=== PATIENT | female | born 1990 | race African-American/Black ===

== ENCOUNTER 2018-02-20 11:02 | Inpatient (IN) | payer OTHER ==
--- NOTE | 2018-02-20 12:14 | ED ---
Psych HPI - General Chief Complaint: Psychiatric Symptoms Stated Complaint: SUICIDAL Time Seen by Provider: 02/20/18 11:37 Source: patient, RN notes reviewed Mode of arrival: wheelchair - History of Present Illness Initial Comments: This is a 27-year-old female with a history depression past also history of drug abuse who states she has not been using drugs for well over 6 months he just got out of [facility] after 6 months on the fifth of this month who presents today because of feeling depressed and suicidal she has no particular plan she is very tearful during her interview however. She cannot relate any specific incident is triggering this today. She states she believes is just generally her life in general. She denies any headache dizziness blurry vision nausea vomiting or other symptoms at this time MD Complaint: suicidal ideation, feels depressed - Related Data Home Medications Medication Instructions Recorded Confirmed No Known Home Medications [No 02/20/18 02/20/18 Known Home Medications] Allergies Allergy/AdvReac Type Severity Reaction Status Date / Time Sulfa (Sulfonamide AdvReac Rash/Hives Verified 02/20/18 11:21 Antibiotics) Review of Systems ROS Statement: Those systems with pertinent positive or pertinent negative responses have been documented in the HPI. ROS Other: All systems not noted in ROS Statement are negative. Past Medical History Past Medical History: No Reported History History of Any Multi-Drug Resistant Organisms: None Reported, MRSA Date of last positivie culture/infection: 2010 MDRO Source:: axilla Past Surgical History: No Surgical Hx Reported Past Psychological History: No Psychological Hx Reported, Depression Smoking Status: Current every day smoker Past Alcohol Use History: Rare Past Drug Use History: Heroin General Exam - General Exam Comments Initial Comments: This is a well-developed well-nourished awake alert oriented 3 female she is tearful Limitations: no limitations General appearance: alert, in no apparent distress Head exam: Present: atraumatic, normocephalic, normal inspection Eye exam: Present: normal appearance, PERRL, EOMI. Absent: scleral icterus, conjunctival injection, periorbital swelling ENT exam: Present: normal exam, mucous membranes moist Neck exam: Present: normal inspection. Absent: tenderness, meningismus, lymphadenopathy Respiratory exam: Present: normal lung sounds bilaterally. Absent: respiratory distress, wheezes, rales, rhonchi, stridor Cardiovascular Exam: Present: regular rate, normal rhythm, normal heart sounds. Absent: systolic murmur, diastolic murmur, rubs, gallop, clicks GI/Abdominal exam: Present: soft, normal bowel sounds. Absent: distended, tenderness, guarding, rebound, rigid Extremities exam: Present: normal inspection, full ROM, normal capillary refill. Absent: tenderness, pedal edema, joint swelling, calf tenderness Back exam: Present: normal inspection Neurological exam: Present: alert, oriented X3, CN II-XII intact Psychiatric exam: Present: depressed, suicidal ideation Skin exam: Present: warm, dry, intact, normal color. Absent: rash Course Vital Signs 02/20/18 11:05 Temperature 97.9 F Pulse Rate 99 Respiratory 18 Rate Blood Pressure 131/78 O2 Sat by Pulse 100 Oximetry Medical Decision Making - Medical Decision Making The patient was evaluated by psychiatric service and will be admitted for inpatient treatment. - Lab Data Lab Results 02/20/18 02/20/18 Range/Units 13:20 13:20 Urine HCG, Qual Not Detected (Not Detectd) Urine Opiates Screen Detected H (NotDetected) Ur Oxycodone Screen Not Detected (NotDetected) Urine Methadone Screen Not Detected (NotDetected) Ur Propoxyphene Screen Not Detected (NotDetected) Ur Barbiturates Screen Not Detected (NotDetected) U Tricyclic Antidepress Not Detected (NotDetected) Ur Phencyclidine Scrn Not Detected (NotDetected) Ur Amphetamines Screen Detected H (NotDetected) U Methamphetamines Scrn Detected H (NotDetected) U Benzodiazepines Scrn Not Detected (NotDetected) Urine Cocaine Screen Not Detected (NotDetected) U Marijuana (THC) Screen Detected H (NotDetected) Disposition Clinical Impression: Depression, Suicidal ideation Disposition: TRANSFER TO PSYCH HOSP/UNIT Condition: Stable Referrals: None,Stated [Primary Care Provider] - 1-2 days
[2018-02-20 13:41] LABS: Amphetamine Screen,Urine Detected (NotDetected); Barbiturate Screen,Urine Not Detected (NotDetected); Benzodiazepines Screen,Urine Not Detected (NotDetected); Cocaine Screen,Urine Not Detected (NotDetected); Methadone Screen, Urine Not Detected (NotDetected); Opiate Screen,Urine Detected (NotDetected); Oxycodone Screen, Urine Not Detected (NotDetected); Phencyclidine Screen,Urine Not Detected (NotDetected); Tricyclic Antidepressant,Urine Not Detected (NotDetected); Urn Cannabinoid Scrn Detected (NotDetected)
[2018-02-20] MEDS ORDERED: ACETAMINOPHEN TAB 325 MG TAB PO PRN (16:25)
[2018-02-20] MEDS ORDERED: MAGNESIUM HYDROXIDE 2,400 MG/10 ML CUP PO PRN (16:25)
[2018-02-20] MEDS ORDERED: MAG HYDROX/AL HYDROX/SIMETH 30 ML CUP PO PRN (16:25)
[2018-02-20] MEDS ORDERED: LORazepam 1 MG TAB PO PRN (16:25)
[2018-02-20] MEDS: NICOTINE 14MG/24HR PATCH TRANSDERM SCH (16:42)
[2018-02-20 17:29] VITALS: BMI 20.7
--- NOTE | 2018-02-20 18:50 | P.HPIM ---
History of Present Illness H&P Date: 02/20/18 Chief Complaint: Depression 27-year-old female with a history depression and anxiety as well as past history of drug use, has been sober for 2 years with recent relapse presented to the emergency department because of worsening depression and anxiety. Patient was sober for 2 years but last 2 weeks she has been using heroin and other street drugs. She stated that she has been hearing voices and seeing any real things and people. The voices ask her if she has done certain things throughout the day. In addition she has been having intermittent right-sided chest pain that lasts for seconds, happens 1-2 times during the day. She stated that she always had shortness of breath. She denies any headache, palpitation, dizziness, blurry vision, nausea, vomiting or other symptoms at this time Review of Systems 12 point review of system was performed, negative except for HPI Past Medical History Past Medical History: No Reported History History of Any Multi-Drug Resistant Organisms: None Reported, MRSA Date of last positivie culture/infection: 2010 MDRO Source:: axilla Past Surgical History: No Surgical Hx Reported Past Psychological History: No Psychological Hx Reported, Depression Smoking Status: Current every day smoker Past Alcohol Use History: Rare Past Drug Use History: Heroin, Marijuana, Methamphetamine - Past Family History Mother Family Medical History: Cancer (stomach) Medications and Allergies Home Medications Medication Instructions Recorded Confirmed Type No Known Home Medications [No 02/20/18 02/20/18 History Known Home Medications] Allergies Allergy/AdvReac Type Severity Reaction Status Date / Time Sulfa (Sulfonamide AdvReac Rash/Hives Verified 02/20/18 18:21 Antibiotics) Physical Exam Vitals: Vital Signs Temp Pulse Pulse Resp BP BP Pulse Ox 02/20/18 15:35 98.1 F 72 16 97/58 02/20/18 15:26 98.5 F 90 18 108/63 100 02/20/18 11:05 97.9 F 99 18 131/78 100 Intake and Output 02/20/18 02/20/18 02/20/18 06:59 14:59 22:59 Other: Weight 58.967 kg 58.117 kg Constitutional: No acute distress, conversant, pleasant Eyes:Anicteric sclerae, moist conjunctiva, no lid-lag, PERRLA, ENMT: Oropharynx clear, no erythema, exudates Neck: Supple, FROM, no masses, or JVD, No carotid bruits, No thyromegaly Lungs: Positive tenderness on the right chest wall to deep palpation, Clear to auscultation, Clear to percussion, Normal respiratory effort, no accessory muscle use Cardiovascular: Heart regular in rate and rhythm, No murmurs, gallops, or rubs, No peripheral edema Abdominal: Soft, Nontender, no guarding, rebound or rigidity, Normoactive bowel sounds, No hepatomegaly, No splenomegaly, No palpable mass Skin: Normal temperature, tone, texture, turgor, no induration, No subcutaneous nodules, No rash, lesions, No ulcers Extremities: No digital cyanosis, No clubbing, Pedal pulses intact and symmetrical, Radial pulses intact and symmetrical, No calf tenderness Psychiatric: Alert and oriented to person, place and time, appropriate affect, intact judgement Neuro: Muscles Strength 5/5 in all 4 extremities, Sensation to light touch grossly present throughout, Cranial nerves II-XII grossly intact, no focal sensory deficits Results Labs: Abnormal Lab Results - Last 24 Hours (Table) 02/20/18 Range/Units 13:20 Urine Opiates Screen Detected H (NotDetected) Ur Amphetamines Screen Detected H (NotDetected) U Methamphetamines Scrn Detected H (NotDetected) U Marijuana (THC) Screen Detected H (NotDetected) Thrombosis Risk Factor Assmnt - Choose All That Apply Any of the Below Risk Factors Present?: No Other Risk Factors: No Other congenital or acquired thrombophilia - If yes, enter type in comment: No Thrombosis Risk Factor Assessment Level: Very Low Risk Assessment and Plan Plan: #1 Suicidal ideation/depression: Management per psychiatry Check CBC, CMP, mag and phos, TSH #2 Smoking: Nicotine patch Counseled to quit #3 Chest pain: Atypical, likely musculoskeletal in origin as it is induced by palpation EKG done and reviewed #4 Substance abuse: Counseled to quit
[2018-02-21 08:12] LABS: Basophils % (A) 1 %; Eosinophils # (A) 0.2 k/uL (0-0.7); Eosinophils % (A) 7 %; HCT 38.1 % (34.0-46.0); Lymphocytes # (A) 1.5 k/uL (1.0-4.8); Lymphocytes % (A) 50 %; MCH 30.6 pg (25.0-35.0); MCHC 34.2 g/dL (31.0-37.0); MCV 89.6 fL (80.0-100.0); Mean Platelet Volume 8.6; Monocytes # (A) 0.2 k/uL (0-1.0); Monocytes % (A) 7 %; Neutrophils # (A) 0.9 k/uL (1.3-7.7); Neutrophils % (A) 31 %; Platelet Count 208 k/uL (150-450); RBC 4.25 m/uL (3.80-5.40); RDW 12.1 % (11.5-15.5); WBC 2.9 k/uL (3.8-10.6)
[2018-02-21 08:28] LABS: ALT 45 U/L (9-52); AST 26 U/L (14-36); Albumin 3.5 g/dL (3.5-5.0); Alkaline Phosphatase 41 U/L (38-126); Anion Gap 8 mmol/L; Blood Urea Nitrogen 12 mg/dL (7-17); Calcium 8.6 mg/dL (8.4-10.2); Carbon Dioxide 27 mmol/L (22-30); Chloride 109 mmol/L (98-107); Glucose 88 mg/dL (74-99); Sodium 144 mmol/L (137-145); Total Bilirubin 0.2 mg/dL (0.2-1.3)
[2018-02-21] MEDS: NICOTINE 14MG/24HR PATCH TRANSDERM SCH (09:05)
[2018-02-21] MEDS: QUEtiapine 50 MG TAB PO PRN ×2 (09:05→21:20)
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
[2018-02-22] MEDS: NICOTINE 14MG/24HR PATCH TRANSDERM SCH (09:42)
--- NOTE | 2018-02-22 12:31 | P.PN ---
Progress Note - Text Progress Note Date: 02/22/18 Patient was seen for a routine follow-up examination. She said she is upset because her cousin is trying to get the full custody of her son. Apparently her son was taken care of by patient's mother and her cousin has been looking after her son for about 1 week and now she wants the custody. She is not clear how her cousin got the custody of first son when he was being taken care of by patient's mother. She said she does not see things or hear voices anymore. She also denies suicidal and homicidal thoughts. She said she is attending her groups. This is a black ambulatory female with good hygiene. She is polite and cooperative. She does not show any psychomotor agitation or retardation. Her speech is spontaneous relevant and goal-directed. Her mood is mildly anxious and affect is appropriate to the thought content. She denies current suicidal and homicidal ideas. She also denies hallucinations and delusional thinking. She is well oriented with adequate memory concentration general knowledge etc. Her insight is still rather poor and judgment is impaired as evidenced by not wanting to go through rehab and wanting to have custody of her son when she does not have a place to live and does not have any means to support herself let alone her son. Plan: Continue current medications and groups.
[2018-02-22] MEDS: QUEtiapine 50 MG TAB PO PRN ×2 (13:42→20:04)
[2018-02-22] MEDS ORDERED: ZIPRASIDONE 20 MG VIAL IM PRN (13:45)
[2018-02-22] MEDS ORDERED: ZIPRASIDONE 20 MG VIAL IM ONE (13:51)
[2018-02-23] MEDS: NICOTINE 14MG/24HR PATCH TRANSDERM SCH (09:03)
[2018-02-23] MEDS: QUEtiapine 50 MG TAB PO PRN ×2 (09:04→16:54)
--- NOTE | 2018-02-23 15:12 | P.PN ---
Progress Note - Text Progress Note Date: 02/23/18 Patient was seen for routine follow-up examination. Today she is lot calmer and more cooperative. Yesterday she got irate, wrote an AMA, threatening others , trying to leave the unit etc. She got a when necessary Geodon shot, slept a few hours in the afternoon and today she feels lot better and relaxed. She says she needs to get some help and to better before she goes home. This is a black ambulatory female with adequate hygiene. She is relaxed and more cooperative. She does not show any psychomotor agitation or retardation. Her speech is spontaneous relevant and goal-directed. Her mood is cheerful and affect is appropriate. She denies hallucinations delusional thinking suicidal and homicidal ideas. She is well oriented with adequate memory concentration etc. Plan: Continue when necessary Seroquel, groups and other activities.
[2018-02-23] MEDS ORDERED: IBUPROFEN 600 MG TAB PO PRN (16:40)
--- NOTE | 2018-02-23 20:54 | XR ---
PROCEDURE: XR shoulder complete RT, 3 views DATE AND TIME: 02/23/2018 5:54 PM REFERRING PHYSICIAN: Apryl Garcia CLINICAL INDICATION: PHH, New onset pain TECHNIQUE: Department protocol. COMPARISON: None FINDINGS: There is no fracture or malalignment. The soft tissues are unremarkable. IMPRESSION: NO ACUTE PROCESS.
[2018-02-24] MEDS: NICOTINE 14MG/24HR PATCH TRANSDERM SCH (08:51)
[2018-02-24] MEDS: QUEtiapine 50 MG TAB PO PRN ×2 (08:52→21:03)
--- NOTE | 2018-02-24 10:15 | P.PN ---
Progress Note - Text Progress Note Date: 02/24/18 Patient was seen for a follow-up examination. She said she just finished her telephone interview for rehab program. Apparently she was told that the earliest she can go there is on March 07. But she will talk to her adoption social worker who may be able to help her to get in there earlier. She is also going to talk to her mother about all these things. She does not have any other complaints or concerns. She has been going to her groups, socializes with peers and interacts with staff members. This is a black ambulatory female with good hygiene. She is polite friendly and cooperative. She does not show any psychomotor agitation or retardation. Her speech is spontaneous relevant and goal-directed. Her mood is cheerful and affect is appropriate. She denies hallucinations and delusional thinking. She also denies suicidal and homicidal thoughts. She has been saying that she is interested in going through rehab. She is well oriented with good memory concentration general fund of knowledge etc. Plan: Continue when necessary medications, groups and possibly send her to a rehab.
[2018-02-24 13:25] LABS: Appearance,Urine Cloudy (Clear); Bilirubin,Urine Negative (Negative); Blood,Urine Negative (Negative); Color,Urine Light Yellow; Glucose,Urine (UA) Negative (Negative); Ketones,Urine Negative (Negative); Leukocyte Esterase,Urine Large (Negative); Mucus,Urine Rare /hpf; Nitrite,Urine Negative (Negative); PH, Urine 6.5 (5.0-8.0); Protein,Urine Negative (Negative); Specific Gravity,Urine 1.011 (1.001-1.035); Squamous Epithelial Cell,Urine 5 /hpf (0-4); Urobilinogen,Urine <2.0 mg/dL (<2.0); WBC,Urine 50 /hpf (0-5)
[2018-02-25] MEDS: NICOTINE 14MG/24HR PATCH TRANSDERM SCH (08:17)
[2018-02-25] MEDS: QUEtiapine 50 MG TAB PO PRN ×2 (08:17→20:49)
--- NOTE | 2018-02-25 09:00 | P.PN ---
Progress Note - Text Progress Note Date: 02/25/18 Patient was seen for routine follow-up examination. She had discussed with her mother and mother's boyfriend about staying with them until she can go to the rehab probably on march. Apparently her mother and her boyfriend do not abuse drugs or alcohol and she can be safe there. Otherwise she does not have any complaint or concerns. She attends her groups, socializes with peers, interacts with staff etc. Somebody had ordered urinalysis for suspected UTI and the findings are suggestive of UTI. This is a black ambulatory female with good hygiene. She is polite friendly and cooperative. She does not show any psychomotor agitation or retardation. Her speech is spontaneous relevant and goal-directed. Her mood is euthymic to cheerful and affect is appropriate. She denies hallucinations delusional thinking suicidal and homicidal ideas. She is well oriented with good memory concentration etc. Plan: Decide about her discharge plans after the treatment team meeting. I will order antibiotics for UTI if this is not handled by the physician who had ordered UTI.
[2018-02-26 07:13] VITALS: RESP 16; TEMP 97.5
[2018-02-26] MEDS: NICOTINE 14MG/24HR PATCH TRANSDERM SCH (08:29)
[2018-02-26] MEDS: QUEtiapine 50 MG TAB PO PRN (08:31)
[2018-02-26] MEDS ORDERED: NITROFURANTOIN MONOHYD/M-CRYST 100 MG CAP PO SCH (09:00)
--- NOTE | 2018-02-26 11:02 | P.DS ---
Providers Date of admission: 02/20/18 15:08 Expected date of discharge: 02/26/18 Attending physician: Janes Sagastume Consults: 02/20/18 16:25 Consult Physician Routine Consulting Provider: Mariah Mcbride Consult Reason/Comments: H & P and medical care Do you want consulting provider notified?: Yes Primary care physician: Stated None Hospital Course: Patient had her psychiatric evaluation, physical examination and psychosocial evaluation. After the psychiatric examination she was started on Seroquel 50 mg 3 times a day on a when necessary basis for "psychosis". She received milieu therapy group therapy individual therapy occupational therapy recreational therapy and medication education. She started to improve, socialized with peers and attended groups and got along fairly well. On 22 of February she became irate wanted to leave the hospital and wrote an AMA request. Because of her agitation and anger issues she was not discharged right away and she was given a when necessary Geodon injection. Following the injection she is slept for a while and when she woke up she became more relaxed and cooperative. She did not insist on leaving the hospital AMA. Then she got interested in getting a rehab for her drug issues. She contacted the rehabilitation services and apparently was accepted to go there on march. Since it is a long way from now she decided to go and stay with her mother and mother's boyfriend who do not abuse drugs or alcohol. In view of this it was agreed to discharge her. Meanwhile she developed some burning of urination and the urinalysis showed evidence of UTI. She was started on nitrofurantoin since she is ALLERGIC to sulfa. Condition on discharge: This is a black ambulatory female with good hygiene. She is polite friendly and cooperative. She does not show any psychomotor agitation or retardation. Her speech is spontaneous relevant and goal- directed. Her mood is cheerful and affect is appropriate. She denies hallucinations delusional thinking suicidal and homicidal ideas. She is well oriented with good memory concentration etc. Her insight and judgment have improved. 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 ALLERGY to sulfa. UTI. Patient was advised and agreed to take her medications as prescribed, seek drug rehabilitation, not to abuse drugs or alcohol, learn better coping skills, inform her doctor if she gets , discuss with her psychiatrist/therapist if she gets any suicide thoughts and if she cannot get hold of them to go to nearest ER. Plan - Discharge Summary Discharge Rx Participant: Yes New Discharge Prescriptions: New Nitrofurantoin Monohyd/M-Cryst [Macrobid] 100 mg PO BID 10 Days #19 cap Discharge Medication List Nitrofurantoin Monohyd/M-Cryst [Macrobid] 100 mg PO BID 10 Days #19 cap [Rx] Follow up Appointment(s)/Referral(s): intake,intake [Other] - As Needed [facility] [Outside] - 03/01/18 11:30 am Activity/Diet/Wound Care/Special Instructions: Activity and diet as tolerated. Avoid the use of street drugs and alcohol. Take medications as prescribed. When you are in need of refills on your medications please contact your medical provider and/or outpatient psychiatrist to have this done. Please go to scheduled outpatient appointment for aftercare treatment. If symptoms return or become worse call the crisis line at [phone] and/or go to the nearest emergency room for an evaluation.
== END 2018-02-26 13:34 | disposition home or self-care (01) | DRG 885 ==
LOC: EC 11:02 → 3MHU 15:08
PROVIDERS: ADMIT Psychiatry & Neurology Psychiatry; ATTEND Psychiatry & Neurology Psychiatry
DX: F23 Brief psychotic disorder (principal); F11.20 Opioid dependence, uncomplicated; R45.851 Suicidal ideations; F15.20 Other stimulant dependence, uncomplicated; N39.0 Urinary tract infection, site not specified; F12.20 Cannabis dependence, uncomplicated; F60.2 Antisocial personality disorder; Z88.2 Allergy status to sulfonamides; F17.200 Nicotine dependence, unspecified, uncomplicated; F32.9 Major depressive disorder, single episode, unspecified; F41.9 Anxiety disorder, unspecified; Z59.0 Homelessness
CPT/HCPCS: 80053; 80306; 81001; 81025; 82075; 84443; 85025; 99285

== ENCOUNTER 2018-03-19 00:56 | Emergency (ER) | payer OTHER | END 2018-03-19 01:30 | disposition left against medical advice (07) | LOC: EC 00:56 | DX: T40.1X1A Poisoning by heroin, accidental (unintentional), initial encounter (principal); Z87.891 Personal history of nicotine dependence; Z88.2 Allergy status to sulfonamides | CPT/HCPCS: 99284 ==

== ENCOUNTER 2018-03-19 03:38 | Emergency (ER) | payer OTHER | END 2018-03-19 04:12 | disposition left against medical advice (07) | LOC: EC 03:38 | DX: Z53.21 Procedure and treatment not carried out due to patient leaving prior to being seen by health care provider (principal) | CPT/HCPCS: 99499 ==

== ENCOUNTER 2018-03-25 20:25 | Inpatient (IN) | payer MEDICAID, OTHER ==
--- NOTE | 2018-03-25 21:11 | ED ---
General Adult HPI - General Chief complaint: Psychiatric Symptoms Stated complaint: suicidal Time Seen by Provider: 03/25/18 21:00 Source: patient, RN notes reviewed, old records reviewed Mode of arrival: ambulatory Limitations: no limitations - History of Present Illness Initial comments: 28-year-old female presenting with suicidal ideation. Patient states she was recently admitted to this hospital for psychiatric evaluation and treatment. Since discharge she has been having daily thoughts of suicide. She states several days ago she did attempt suicide by ingestion large quantity of fentanyl. She was taken to the hospital as an opiate overdose. She states this was a suicide attempt. She denies any ingestion today. No illicit drugs. No alcohol. She has no pain complaints. She is otherwise healthy. - Related Data Home Medications Medication Instructions Recorded Confirmed No Known Home Medications [No 03/25/18 03/25/18 Known Home Medications] Allergies Allergy/AdvReac Type Severity Reaction Status Date / Time Sulfa (Sulfonamide Allergy Rash/Hives Verified 03/25/18 21:29 Antibiotics) Review of Systems ROS Statement: Those systems with pertinent positive or pertinent negative responses have been documented in the HPI. ROS Other: All systems not noted in ROS Statement are negative. Past Medical History Past Medical History: No Reported History History of Any Multi-Drug Resistant Organisms: MRSA Date of last positivie culture/infection: 2010 MDRO Source:: axilla Past Surgical History: No Surgical Hx Reported Past Psychological History: Anxiety, Depression Smoking Status: Current every day smoker Past Alcohol Use History: Rare Past Drug Use History: Heroin, Marijuana, Methamphetamine - Past Family History Mother Family Medical History: Cancer (stomach) General Exam Limitations: no limitations General appearance: alert, in no apparent distress Head exam: Present: atraumatic, normocephalic Eye exam: Present: normal appearance. Absent: PERRL, EOMI ENT exam: Present: normal exam. Absent: normal oropharynx, mucous membranes dry Neck exam: Present: normal inspection. Absent: tenderness, meningismus Respiratory exam: Present: normal lung sounds bilaterally. Absent: respiratory distress, wheezes Cardiovascular Exam: Present: regular rate, normal rhythm GI/Abdominal exam: Present: soft. Absent: distended, tenderness Extremities exam: Present: normal inspection, full ROM, normal capillary refill. Absent: pedal edema Neurological exam: Present: alert, oriented X3, CN II-XII intact. Absent: motor sensory deficit Psychiatric exam: Present: depressed, suicidal ideation. Absent: homicidal ideation Skin exam: Present: warm, dry, intact. Absent: cyanosis, diaphoretic Course Vital Signs 03/25/18 20:49 Temperature 98.6 F Pulse Rate 82 Respiratory 20 Rate Blood Pressure 103/71 O2 Sat by Pulse 99 Oximetry Medical Decision Making - Medical Decision Making Patient evaluated by EPS in the emergency department. She will be admitted for further evaluation and treatment of depression and suicidal ideation. - Lab Data Lab Results 03/25/18 Range/Units 21:07 Urine Opiates Screen Not Detected (NotDetected) Ur Oxycodone Screen Not Detected (NotDetected) Urine Methadone Screen Not Detected (NotDetected) Ur Propoxyphene Screen Not Detected (NotDetected) Ur Barbiturates Screen Not Detected (NotDetected) U Tricyclic Antidepress Not Detected (NotDetected) Ur Phencyclidine Scrn Not Detected (NotDetected) Ur Amphetamines Screen Detected H (NotDetected) U Methamphetamines Scrn Detected H (NotDetected) U Benzodiazepines Scrn Detected H (NotDetected) Urine Cocaine Screen Detected H (NotDetected) U Marijuana (THC) Screen Detected H (NotDetected) Disposition Clinical Impression: Depression, Suicidal ideation Disposition: ADMITTED IP TO [facility] Condition: Stable Is patient prescribed a controlled substance at d/c from ED?: No Referrals: None,Stated [Primary Care Provider] - 1-2 days Decision to Admit Reason: Admit from EC Decision Date: 03/26/18 Decision Time: 00:13
[2018-03-25 21:33] LABS: Amphetamine Screen,Urine Detected (NotDetected); Barbiturate Screen,Urine Not Detected (NotDetected); Benzodiazepines Screen,Urine Detected (NotDetected); Cocaine Screen,Urine Detected (NotDetected); Methadone Screen, Urine Not Detected (NotDetected); Opiate Screen,Urine Not Detected (NotDetected); Oxycodone Screen, Urine Not Detected (NotDetected); Phencyclidine Screen,Urine Not Detected (NotDetected); Tricyclic Antidepressant,Urine Not Detected (NotDetected); Urn Cannabinoid Scrn Detected (NotDetected)
[2018-03-26] MEDS ORDERED: LORazepam 1 MG TAB PO PRN (01:14)
[2018-03-26] MEDS ORDERED: ACETAMINOPHEN TAB 325 MG TAB PO PRN (01:14)
[2018-03-26] MEDS ORDERED: ZIPRASIDONE 20 MG VIAL IM PRN (01:14)
[2018-03-26] MEDS ORDERED: MAG HYDROX/AL HYDROX/SIMETH 30 ML CUP PO PRN (01:14)
[2018-03-26] MEDS ORDERED: MAGNESIUM HYDROXIDE 2,400 MG/10 ML CUP PO PRN (01:14)
[2018-03-26 01:24] VITALS: BMI 20.2
[2018-03-26 02:02] LABS: Appearance,Urine Cloudy (Clear); Bilirubin,Urine Negative (Negative); Blood,Urine Negative (Negative); Color,Urine Yellow; Glucose,Urine (UA) Negative (Negative); Ketones,Urine Trace (Negative); Leukocyte Esterase,Urine Large (Negative); Mucus,Urine Few /hpf; Nitrite,Urine Negative (Negative); PH, Urine 6.5 (5.0-8.0); Protein,Urine 1+ (Negative); RBC,Urine 7 /hpf (0-5); Specific Gravity,Urine 1.031 (1.001-1.035); Squamous Epithelial Cell,Urine 6 /hpf (0-4); WBC,Urine 29 /hpf (0-5)
[2018-03-26 02:15] LABS: Bacteria,Urine Rare /hpf
[2018-03-26] MEDS ORDERED: LORazepam 2 MG/ML INJ IM PRN (05:02)
--- NOTE | 2018-03-26 07:09 | P.PN ---
Progress Note - Text Progress Note Date: 03/26/18 Upon RN request for a new consult for medical management I went to see the patient, however patient was sleeping when we tried to wake her up at 6:15 in the morning, she started yelling refusing to see a medical doctor and claiming that she has no medical concerns, RN assisting that she should get up and get evaluated as part of the routine explained to her, she became very aggressive and continued to scream refusing to get up. RN the patient down and told her that she can go back to sleep and that she will be seen later. Patient again expressed the fact that she does not want medical doctor if she has no medical concerns. And she went back to sleep
[2018-03-26] MEDS: NICOTINE 14MG/24HR PATCH TRANSDERM SCH (08:20)
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
[2018-03-26] MEDS: QUEtiapine 50 MG TAB PO PRN (13:56)
[2018-03-27] MEDS: NICOTINE 14MG/24HR PATCH TRANSDERM SCH (08:00)
[2018-03-27] MEDS: QUEtiapine 50 MG TAB PO PRN (08:01)
--- NOTE | 2018-03-27 09:03 | P.PN ---
Progress Note - Text Progress Note Date: 03/27/18 Patient was seen for routine follow-up examination. She is laying down in her bed. She had started to socialize with others since around yesterday noon. She got her nicotine patch both yesterday and this morning. She also took when necessary Seroquel this morning. Apparently she was in the rehab for a few days after her last discharge from here. She was discharged from there since she was engaging in disruptive behavior. Apparently since cannabis then she went back abusing drugs and it is not clear where she was living. Apparently she and her girlfriend both came here seeking admission. Her girlfriend apparently was sent to [place] and she was admitted here. Patient is homeless, does not have any place to live and does not have any source of income. But, she is still able to abuse multiple drugs. Her drug screening was positive for amphetamines, methamphetamines, cocaine, benzodiazepines and cannabis. When she was asked about her discharge plans she said she does not have any. She also said she would like to be treated for depression. She became white irate when she was counseled that abusing multiple drugs can make person feel depressed. She also said she does not want to waste her time or others time and staying in the hospital will be useless. This is a black ambulatory female with good hygiene. She does not show any psychomotor agitation or retardation. Her speech is spontaneous relevant and goal-directed her mood is euthymic to irritable. Affect is appropriate. She denies hallucinations, delusional thinking, suicidal and homicidal ideas. She is well oriented with adequate memory concentration general knowledge etc. Plan: Continue when necessary Seroquel, groups and other therapies. Early discharge since patient has an extensive history of multiple drug abuse, antisocial/criminal behavior and does not seem to be interested in changing her lifestyle.
[2018-03-27 09:13] VITALS: TEMP 98.2
[2018-03-27] MEDS ORDERED: FLUCONAZOLE 150 MG TAB PO STA (10:57)
--- NOTE | 2018-03-27 11:11 | P.HPMEDMHU ---
History of Present Illness H&P Date: 03/27/18 Chief Complaint: depression Patient is a 28-year-old -[place] female with a past medical history of IV drug use, tobacco abuse, and hepatitis C. She is currently hospitalized in the psychiatric unit for depression. Patient seen and examined at bedside. She states that she was called after donating plasma and told that she had hepatitis C. She has never seen a doctor since then and is worried about her hepatitis status. She also states that she was recently on macrobif for a UTI and now has white vaginal discharge and itching. She believes that it is a yeast infection. She denies any risky sexual behaviors does not believe she could've been exposed to an STD. she has no other complaints currently. She also complains of left knee pain is intermittent. She states her knee sometimes magdiel on that when she was recently at [facility] they had an Awais wrap on her knee and this seemed to help. She denies any fevers, chills, nausea, vomiting, diarrhea, constipation, chest pain, shortness of breath, or headaches. Review of Systems positives: White vaginal discharge, vaginal itching Pertinent positives and negatives as discussed in HPI, a complete review of systems was performed and all other systems are negative. Past Medical History Additional Past Medical History / Comment(s): Hepatitis C History of Any Multi-Drug Resistant Organisms: MRSA Date of last positivie culture/infection: 2010 MDRO Source:: axilla Past Surgical History: No Surgical Hx Reported Past Psychological History: Anxiety, Depression Smoking Status: Current every day smoker Past Alcohol Use History: Rare Past Drug Use History: Cocaine, Heroin, Marijuana, Methamphetamine - Past Family History Mother Family Medical History: Cancer Medications and Allergies Home Medications Medication Instructions Recorded Confirmed Type No Known Home Medications [No 03/25/18 03/26/18 History Known Home Medications] Allergies Allergy/AdvReac Type Severity Reaction Status Date / Time Sulfa (Sulfonamide Allergy Rash/Hives Verified 03/26/18 02:00 Antibiotics) Physical Exam Osteopathic Statement: *. No significant issues noted on an osteopathic structural exam other than those noted in the History and Physical/Consult. Vitals: Vital Signs Temp Pulse Pulse Resp BP BP 03/27/18 08:12 98.2 F 102 H 18 123/58 03/27/18 06:43 98.0 F 63 12 96/54 General: non toxic, no distress, appears at stated age, normal weight Derm: no unusual rashes/lesions no unusual ecchymoses, warm, dry Head: atraumatic, normocephalic, symmetric Eyes: EOMI, no lid lag, anicteric sclera, pupils equal round reactive to light ENT: Nose and ears atraumatic, no thrush, no pharyngeal erythema Neck: No thyromegaly, no cervical lymphadenopathy, trachea midline, supple Mouth: no lip lesion, mucus membranes moist Cardiovascular: S1S2 reg, no murmur, positive posterior tibial pulse bilateral, no edema, capillary refill less than 2 seconds Lungs: CTA bilateral, no rhonchi, no rales , no accessory muscle use Abdominal: soft, nontender to palpation, no guarding, no appreciable organomegaly, normal bowel sounds Ext: no gross muscle atrophy, muscle strength 5 out of 5 in all 4 extremities grossly, no contractures, Neuro: CN II-XI grossly intact, light touch intact all 4 extremities, finger to nose within normal limits, Psych: Alert, oriented, appropriate affect Cranial Nerve Examination - Cranial Nerves Cranial Nerve II- Optic: Intact Cranial Nerve III- Oculomotor: Intact Cranial Nerve IV- Trochlear: Intact Cranial Nerve V- Trigeminal: Intact Cranial Nerve - Abducens: Intact Cranial Nerve VII- Facial: Intact Cranial Nerve VIII- Auditory: Intact Cranial Nerve IX- Glossopharyngeal: Intact Cranial Nerve X- Vagus: Intact Cranial Nerve XI- Accessory: Intact Cranial Nerve XII- Hypoglossal: Intact Thrombosis Risk Factor Assmnt - DVT/VTE Prophylaxis DVT/VTE Prophylaxis: Low risk, early ambulation encouraged - Choose All That Apply Any of the Below Risk Factors Present?: No Other Risk Factors: No Thrombosis Risk Factor Assessment Level: Very Low Risk Assessment and Plan Assessment: Hepatitis C - was told this after donating blood products -Has never seen a physician for this -Check LFTs, hepatitis C profile, HIV, AFP, and liver ultrasound Left knee pain and buckeling - PT to evaluate patient Tobacco abuse - cessation - nicotine replacement Illicit drug use - just completed treatment at [facility] - Continue to abstain from drugs.
[2018-03-27] MEDS ORDERED: ZIPRASIDONE 20 MG VIAL IM PRN (11:19)
[2018-03-27 12:06] LABS: HCT 40.6 % (34.0-46.0); HGB 13.5 gm/dL (11.4-16.0); MCH 30.8 pg (25.0-35.0); MCHC 33.2 g/dL (31.0-37.0); MCV 92.7 fL (80.0-100.0); Mean Platelet Volume 7.4; Platelet Count 219 k/uL (150-450); RBC 4.38 m/uL (3.80-5.40); RDW 12.8 % (11.5-15.5); WBC 3.2 k/uL (3.8-10.6)
[2018-03-27 12:18] LABS: INR 1.2 (<1.2); Prothrombin Time 11.3 sec (9.0-12.0)
[2018-03-27 12:19] LABS: Albumin 4.3 g/dL (3.5-5.0); Calcium 9.3 mg/dL (8.4-10.2); Potassium 4.3 mmol/L (3.5-5.1); Total Bilirubin 0.4 mg/dL (0.2-1.3)
[2018-03-27] MEDS ORDERED: LORazepam 2 MG/ML INJ IM STA (17:28)
[2018-03-27] MEDS ORDERED: LORazepam 2 MG/ML INJ ONE (17:35)
[2018-03-27 17:38] LABS: HIV AB P24 Non-Reactive (Non-Reactive); HIV P24 AG Non-Reactive (Non-Reactive)
[2018-03-27 18:56] VITALS: RESP 12
[2018-03-27 20:46] LABS: Hepatitis A Antibody IgM Non-Reactive (Non-Reactive); Hepatitis B Core IgM Non-Reactive (Non-Reactive)
[2018-03-27 20:54] VITALS: PULSE 72
[2018-03-28 07:08] VITALS: BP 82/47
--- NOTE | 2018-03-28 08:11 | US ---
EXAMINATION TYPE: US liver DATE OF EXAM: 03/28/2018 COMPARISON: Complete abdominal ultrasound November 02, 2013 CLINICAL HISTORY: hepatitis C. EXAM MEASUREMENTS: Liver Length: 12.6 cm Gallbladder Wall: 0.2 cm CBD: 0.2 cm Right Kidney: 11.3 x 3.2 x 5.0 cm Pancreas: partially obscured by bowel gas, portions visualized wnl Liver: wnl Gallbladder: wnl Evidence for sonographic Felipe's sign: no CBD: wnl Right Kidney: No hydronephrosis or masses seen IMPRESSION: No worrisome intrahepatic mass or intrahepatic ductal dilatation is seen.
[2018-03-28] MEDS: NICOTINE 14MG/24HR PATCH TRANSDERM SCH (09:06)
--- NOTE | 2018-03-28 09:58 | P.DS ---
Providers Date of admission: 03/26/18 00:14 Expected date of discharge: 03/28/18 Attending physician: Janes Sagastume Consults: 03/26/18 01:14 Consult Physician Routine Consulting Provider: Mariah Physician Consult Reason/Comments: For H & P for Medical Follow Up Do you want consulting provider notified?: Yes Primary care physician: Stated None Hospital Course: Patient had her psychiatric evaluation, physical examination and psychosocial evaluation. She was not started on any medication after psychiatric evaluation since I was not able to verified that she has any condition that can be treated with psychiatric medication. She was quite uncooperative negativistic initially. But, she settled down became more cooperative, socialized with peers and attended groups etc. But she throws fits whenever she does not get what she wants which is most likely due to her [place] II diagnoses and substance abuse and not because of [place] I diagnosis which she does not have. Apparently she told the internal medicine doctor that she was trying to donate plasma and was told that she is positive for hep C. So lab test was repeated with confirmed that she is positive for hep C with borderline increased AST and ALT. Ultrasound of the abdomen showed normal liver pancreas and kidneys etc. Since patient is doing well and does not meet the criteria for continued hospitalization it was agreed to discharge her even though she does not have any place to live since she has consistently demonstrated that she is ready resourceful person and has been able to find places to live and to support her drug habits. Condition on discharge: This is a black ambulatory female with good hygiene. Currently she is polite friendly and cooperative. She does not show any psychomotor agitation or retardation. Her speech is spontaneous relevant and goal-directed. Her mood is euthymic and affect is appropriate to the thought content. She continues not to have hallucinations delusional thinking suicidal and homicidal ideas. She is well oriented with good memory concentration general knowledge etc. Her insight has improved and judgment is still poor as evidenced by her continued desire to abuse drugs and snapping at people when she does not get what she wants. Diagnosis on discharge: Opioid use disorder severe in the past F 11.20. 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 Cannabis use disorder severe F 12.20. Antisocial personality disorder F 60.2. Malingering Z 76.5. ALLERGY to sulfa. Patient was advised and agreed to go to [facility] today for outpatient follow-up which would include counseling to improve her coping skills about drug abuse etc., to learn better coping skills through therapy, to report her doctor if she gets . Plan - Discharge Summary New Discharge Prescriptions: Continue No Known Home Medications [No Known Home Medications] Discharge Medication List No Known Home Medications [No Known Home Medications] 03/25/18 [History] Follow up Appointment(s)/Referral(s): [facility] [Outside] - 1-2 Days (Walk in intake: Today until 3pm Saturday 830 -3pm Saturday 1030-3pm (no late hours)) None,Stated [Primary Care Provider] - 1-2 days [facility] [NON-STAFF] - 1 Week
== END 2018-03-28 11:52 | disposition home or self-care (01) | DRG 881 ==
LOC: EC 20:25 → 3MHU 03-26 00:14
PROVIDERS: ADMIT Psychiatry & Neurology Psychiatry; ATTEND Psychiatry & Neurology Psychiatry
DX: F32.9 Major depressive disorder, single episode, unspecified (principal); R45.851 Suicidal ideations; B19.20 Unspecified viral hepatitis C without hepatic coma; F17.200 Nicotine dependence, unspecified, uncomplicated; F60.2 Antisocial personality disorder; F12.90 Cannabis use, unspecified, uncomplicated; F41.9 Anxiety disorder, unspecified; F11.90 Opioid use, unspecified, uncomplicated; F15.90 Other stimulant use, unspecified, uncomplicated; Z88.2 Allergy status to sulfonamides; Z59.0 Homelessness; Z76.5 Malingerer [conscious simulation]
CPT/HCPCS: 76705; 80053; 80061; 80074; 80306; 81001; 81025; 82075; 82105; 85027; 85610; 87390; 99285

== ENCOUNTER 2022-10-18 11:42 | Emergency (ER) | payer OTHER ==
[2022-10-18 12:29] VITALS: BP 119/70; PULSE 82; RESP 18; TEMP 98.7
--- NOTE | 2022-10-18 13:36 | XR ---
EXAMINATION TYPE: XR foot complete LT DATE OF EXAM: 10/18/2022 COMPARISON: NONE HISTORY: Pain TECHNIQUE: Three views are submitted. FINDINGS: The osseous structures are intact. There is no acute fracture or dislocation. Joint spaces are p reserved. IMPRESSION: 1. No acute fracture or dislocation. If symptoms persist, follow-up exam in 7 to 10 days could be ob tained.
--- NOTE | 2022-10-18 14:10 | ED ---
Lower Extremity Injury HPI - General Chief Complaint: Extremity Injury, Lower Stated Complaint: L foot pain Time Seen by Provider: 10/18/22 13:05 Source: patient Mode of arrival: ambulatory - History of Present Illness Initial Comments: 32-year-old female with reported history of presents to the emergency department with left toe pain. She reports that she was walking in socks one month ago when she accidentally scraped her toe. Does not remember hitting it however looked down and saw that she had blood coming from the left great toe. States that the cut has healed however she continues to have pain. Denies any new injury. States that the pain is worse when placing weight on her extremity. Denies any redness to the skin. No fevers. No drainage from the site. No other alleviating, precipitating or modifying factors - Related Data Previous Rx's Medication Instructions Recorded Albuterol Sulfate [Proair Hfa] 1 - 2 puff INHALATION Q4HR PRN #1 10/24/18 inhaler Azithromycin [Zithromax Z-pack (6 0 mg PO DIRECTED #1 pack 10/24/18 tabs)] predniSONE 50 mg PO DAILY #5 tab 10/24/18 Allergies Allergy/AdvReac Type Severity Reaction Status Date / Time Sulfa (Sulfonamide Allergy Rash/Hives Verified 10/18/22 12:30 Antibiotics) Review of Systems ROS Statement: Those systems with pertinent positive or pertinent negative responses have been documented in the HPI. ROS Other: All systems not noted in ROS Statement are negative. Past Medical History Past Medical History: No Reported History Additional Past Medical History / Comment(s): Hepatitis C History of Any Multi-Drug Resistant Organisms: MRSA Date of last positivie culture/infection: 2010 MDRO Source:: axilla Past Surgical History: No Surgical Hx Reported Past Psychological History: Anxiety, Depression Smoking Status: Current every day smoker Past Alcohol Use History: Rare Past Drug Use History: Marijuana - Past Family History Mother Family Medical History: Cancer General Exam General appearance: alert, in no apparent distress Head exam: Present: atraumatic, normocephalic, normal inspection Extremities exam: Present: tenderness (to palpation of first digit on left foot at metatarsal/phalangeal joint. no swellling. bunion noted. no rash/open skin. 2+ DP and PT pulses) Course Vital Signs 10/18/22 12:25 Temperature 98.7 F Pulse Rate 82 Respiratory 18 Rate Blood Pressure 119/70 O2 Sat by Pulse 100 Oximetry Medical Decision Making - Medical Decision Making Upon arrival patient is placed in room 31. Thorough history and physical exam was performed. No signs of cellulitis. X-rays performed. I did go back to the room to discuss results with the patient however anneemt has eloped from the ED. Disposition Clinical Impression: Left foot pain Disposition: HOME SELF-CARE Condition: Stable Instructions (If sedation given, give patient instructions): Foot Sprain (ED), Arthralgia (ED) Additional Instructions: Rest, ice and elevate the extremity. Follow-up with the orthopedic office for further evaluation of your pain Is patient prescribed a controlled substance at d/c from ED?: No Referrals: None,Stated [Primary Care Provider] - 1-2 days Juju Kong DO [Doctor of Osteopathic Medicine] - 1-2 days Time of Disposition: 14:09
== END 2022-10-18 14:11 | disposition home or self-care (01) ==
LOC: EC 11:42
DX: M79.675 Pain in left toe(s) (principal); F32.A Depression, unspecified; F41.9 Anxiety disorder, unspecified; F12.90 Cannabis use, unspecified, uncomplicated; F17.200 Nicotine dependence, unspecified, uncomplicated; Z88.2 Allergy status to sulfonamides
CPT/HCPCS: 99283

== ENCOUNTER → 2022-12-25 | Outpatient (CLI) | payer OTHER ==
[2022-12-25 10:23] LABS: Basophils # (A) 0.08 X 10*3/uL (0.00-0.10); Basophils % (A) 2.2 %; Eosinophils # (A) 0.13 X 10*3/uL (0.04-0.35); Eosinophils % (A) 3.6 %; HCT 45.7 % (37.2-46.3); HGB 14.7 g/dL (12.0-15.0); Immature Grans, Automated 0.3 %; Lymphocytes # (A) 1.56 X 10*3/uL (0.90-5.00); MCH 30.6 pg (27.0-32.0); MCHC 32.2 g/dL (32.0-37.0); MCV 95.2 fL (80.0-97.0); Mean Platelet Volume 10.6 fL (9.5-12.2); Monocytes # (A) 0.39 X 10*3/uL (0.20-1.00); Monocytes % (A) 10.7 %; NRBC Per 100 WBC 0 /100 WBCS (0.0-0.0); Neutrophils # (A) 1.46 X 10*3/uL (1.80-7.70); Neutrophils % (A) 40.2 %; Platelet Count 251 X 10*3/uL (140-440); WBC 3.63 X 10*3/uL (4.50-10.00)
[2022-12-25 10:52] LABS: % Iron Saturation 23.83 (12.00-45.00); ALT 23 U/L (8-44); AST 24 U/L (13-35); African American GFR (CKD) 87.5 (60.0-200.0); Albumin 4.6 g/dL (3.8-4.9); Alkaline Phosphatase 52 U/L (41-126); Blood Urea Nitrogen 11.2 mg/dL (9.0-27.0); Calcium 9.2 mg/dL (8.7-10.3); Carbon Dioxide 23.9 mmol/L (20.0-27.5); Chloride 107 mmol/L (96-109); Globulin 2.7 g/dL (1.6-3.3); Glucose 89 mg/dL (70-110); Iron 99 ug/dL (50-170); Magnesium 2.1 mg/dL (1.5-2.4); Non-African American GFR(CKD) 75.5 (60.0-200.0); Phosphorus 3.4 mg/dL (2.4-5.1); Potassium 4.1 mmol/L (3.5-5.5); Sodium 140 mmol/L (135-145); Total Iron Binding Capacity 416 ug/dL (228-460); Total Protein 7.3 g/dL (6.2-8.2); Uric Acid 3.4 mg/dL (2.9-7.7)
[2022-12-25 11:02] LABS: Hepatitis A Antibody IgM Nonreactive (Nonreactive); Hepatitis B Core IgM Nonreactive (Nonreactive); Hepatitis B Surface Antigen Nonreactive (Nonreactive); Hepatitis C IgG Antibody Reactive (Nonreactive)
[2022-12-25 11:12] LABS: C Reactive Protein <0.30 mg/dL (0.00-0.80); Chol/HDL Ratio 2.62 Ratio; Creatine Kinase 130 U/L (26-186); Ferritin 38.1 ng/mL (10.0-291.0); VLDL Calculation 10.68 mg/dL (5.00-40.00)
[2022-12-25 12:11] LABS: Erythrocyte Sedimentation Rate 1 mm/Hr (0-20)
[2022-12-25 14:02] LABS: HIV 2 AB Non-Reactive (Non-Reactive); HIV AB P24 Non-Reactive (Non-Reactive); HIV P24 AG Non-Reactive (Non-Reactive)
[2022-12-25 17:13] LABS: Appearance,Urine Cloudy (Clear); Bilirubin,Urine Small (Negative); Blood,Urine Negative (Negative); Color,Urine Dark Yellow (Yellow); Ketones,Urine Trace mg/dL (Negative); Nitrite,Urine Negative (Negative); PH, Urine 5.5 (5.0-8.0); Specific Gravity,Urine 1.031 (1.001-1.030)
[2022-12-25 17:32] LABS: Bacteria,Urine 3+ /HPF (None Seen)
== END ==
LOC: LABWHC1 07:01
PROVIDERS: ATTEND Internal Medicine
DX: E03.9 Hypothyroidism, unspecified (principal); E55.9 Vitamin D deficiency, unspecified; E78.5 Hyperlipidemia, unspecified; D64.9 Anemia, unspecified; J44.9 Chronic obstructive pulmonary disease, unspecified
CPT/HCPCS: 36415; 80053; 80061; 80074; 81001; 82306; 82533; 82550; 82728; 83540; 83550; 83735; 84100; 84443; 84550; 85025; 85652; 85660; 86140; 87086; 87390

== ENCOUNTER → 2023-02-20 | Outpatient (CLI) | payer OTHER | END | disposition home or self-care (01) | LOC: LABWHC1 10:46 | PROVIDERS: ATTEND Internal Medicine | DX: Z53.9 Procedure and treatment not carried out, unspecified reason (principal) ==

== ENCOUNTER → 2023-05-16 | Outpatient (CLI) | payer OTHER ==
--- NOTE | 2023-05-16 07:29 | US ---
EXAMINATION TYPE: US liver DATE OF EXAM: 05/16/2023 COMPARISON: US CLINICAL INDICATION: Female, 33 years old with history of B18.2 CHRONIC VIRAL HEPATITIS C; Chronic He p C TECHNIQUE: Multiple sonographic images of the right upper quadrant are obtained. FINDINGS: EXAM MEASUREMENTS: Liver Length: 14.7 cm Gallbladder Wall: 0.1 cm CBD: 0.2 cm Right Kidney: 12.0 x 3.2 x 4.4 cm FOREMAN/PILE DRIVING AND ERECTION NOTES: Pancreas: wnl Liver: wnl Gallbladder: wnl Evidence for sonographic Felipe's sign: No CBD: wnl Right Kidney: wnl IMPRESSION: Significant abnormality appreciated at this time.
== END | disposition home or self-care (01) ==
LOC: RADUSWWP 07:05
PROVIDERS: ATTEND Internal Medicine Gastroenterology
DX: B18.2 Chronic viral hepatitis C (principal)
CPT/HCPCS: 76705

== ENCOUNTER → 2023-05-17 | Outpatient (CLI) | payer OTHER ==
[2023-05-17 15:43] LABS: Basophils # (A) 0.07 X 10*3/uL (0.00-0.10); Basophils % (A) 2.6 %; Eosinophils # (A) 0.09 X 10*3/uL (0.04-0.35); Eosinophils % (A) 3.3 %; HCT 44.1 % (37.2-46.3); HGB 13.9 d/dL (12.0-15.0); Immature Grans, Automated 0 %; Lymphocytes # (A) 0.88 X 10*3/uL (0.90-5.00); Lymphocytes % (A) 32.5 %; MCH 30.1 pg (27.0-32.0); MCHC 31.5 d/dL (32.0-37.0); MCV 95.5 FL (80.0-97.0); Mean Platelet Volume 10.7 FL (9.5-12.2); Monocytes % (A) 7.4 %; NRBC Per 100 WBC 0 X 10*3/uL (0.00-0.01); Neutrophils # (A) 1.47 X 10*3/uL (1.80-7.70); Neutrophils % (A) 54.2 %; Platelet Count 233 X 10*3/uL (140-440); RBC 4.62 X 10*6/uL (4.10-5.20); RDW 13.1 % (11.5-14.5); WBC 2.71 X 10*3/uL (4.50-10.00)
[2023-05-17 16:07] LABS: ALT 32 U/L (8-44); AST 28 U/L (13-35); Albumin 4.3 d/dL (3.8-4.9); Albumin/Globulin Ratio 1.87 Ratio (1.60-3.17); Alkaline Phosphatase 57 U/L (41-126); BUN/Creat Ratio 10.33 Ratio (12.00-20.00); Bilirubin, Conjugated 0.21 mg/dL (0.20-0.40); Bilirubin,Unconjugated 0.39 mg/dL (0.20-1.00); Blood Urea Nitrogen 9.3 mg/dL (9.0-27.0); Calcium 9.1 mg/dL (8.7-10.3); Carbon Dioxide 23.4 mmol/L (21.6-31.8); Chloride 106 mmol/L (96-109); Globulin 2.3 d/dL (1.6-3.3); Glucose 123 mg/dL (70-110); Potassium 4.2 mmol/L (3.5-5.5); Sodium 139 mmol/L (135-145); Total Bilirubin 0.6 mg/dL (0.3-1.2); Total Protein 6.6 d/dL (6.2-8.2)
== END | disposition home or self-care (01) ==
LOC: LABWHC1 05-16 13:46
PROVIDERS: ATTEND Nurse Practitioner Family
DX: B18.2 Chronic viral hepatitis C (principal)
CPT/HCPCS: 36415; 80053; 82248; 85025; 87522

== ENCOUNTER 2023-05-31 12:31 | Emergency (ER) | payer OTHER ==
[2023-05-31 12:54] VITALS: BP 123/77; PULSE 90; RESP 18; TEMP 98.2
[2023-05-31 13:59] LABS: Appearance,Urine Clear (Clear); Bilirubin,Urine Negative (Negative); Blood,Urine Negative (Negative); Color,Urine Light Yellow; Glucose,Urine (UA) Negative (Negative); Ketones,Urine Negative (Negative); Leukocyte Esterase,Urine Negative (Negative); Nitrite,Urine Negative (Negative); PH, Urine 7.5 (5.0-8.0); Protein,Urine Negative (Negative); Urobilinogen,Urine <2.0 mg/dL (<2.0)
--- NOTE | 2023-05-31 15:05 | ED ---
Female Urogenital HPI - General Chief complaint: Urogenital Stated complaint: STD exposure Time Seen by Provider: 05/31/23 12:55 Source: patient Mode of arrival: ambulatory Limitations: no limitations - History of Present Illness Initial comments: 33-year-old female presents to the emergency room requesting STD testing. States that her just tested positive for herpes and trach. Due to the exposure she wants to be tested. Denies having any symptoms. No rashes. No vaginal discharge. No fevers. No concern for . No other alleviating, precipitating or modifying factors - Related Data Previous Rx's Medication Instructions Recorded Albuterol Sulfate [Proair Hfa] 1 - 2 puff INHALATION Q4HR PRN #1 10/24/18 inhaler Azithromycin [Zithromax Z-pack (6 0 mg PO DIRECTED #1 pack 10/24/18 tabs)] predniSONE 50 mg PO DAILY #5 tab 10/24/18 Allergies Allergy/AdvReac Type Severity Reaction Status Date / Time Sulfa (Sulfonamide Allergy Rash/Hives Verified 10/18/22 12:30 Antibiotics) Review of Systems ROS Statement: Those systems with pertinent positive or pertinent negative responses have been documented in the HPI. ROS Other: All systems not noted in ROS Statement are negative. Past Medical History Past Medical History: No Reported History Additional Past Medical History / Comment(s): Hepatitis C History of Any Multi-Drug Resistant Organisms: MRSA Date of last positivie culture/infection: 2010 MDRO Source:: axilla Past Surgical History: No Surgical Hx Reported Past Psychological History: Anxiety, Depression Smoking Status: Vaper Past Alcohol Use History: Rare Past Drug Use History: Marijuana - Past Family History Mother Family Medical History: Cancer General Exam Limitations: no limitations General appearance: alert, in no apparent distress Head exam: Present: atraumatic, normocephalic, normal inspection Eye exam: Present: normal appearance, PERRL, EOMI. Absent: scleral icterus, conjunctival injection, periorbital swelling ENT exam: Present: normal exam, mucous membranes moist Neck exam: Present: normal inspection. Absent: tenderness, meningismus, lymphadenopathy Respiratory exam: Present: normal lung sounds bilaterally. Absent: respiratory distress, wheezes, rales, rhonchi, stridor Cardiovascular Exam: Present: regular rate, normal rhythm, normal heart sounds. Absent: systolic murmur, diastolic murmur, rubs, gallop, clicks GI/Abdominal exam: Present: soft, normal bowel sounds. Absent: distended, tenderness, guarding, rebound, rigid External exam: Present: normal external exam. Absent: swelling, lesions, lacerations Speculum exam: Present: normal speculum exam. Absent: erythema, vaginal discharge, cervical discharge, vaginal bleeding Extremities exam: Present: normal inspection, full ROM, normal capillary refill. Absent: tenderness, pedal edema, joint swelling, calf tenderness Back exam: Present: normal inspection Neurological exam: Present: alert, oriented X3, CN II-XII intact Psychiatric exam: Present: normal affect, normal mood Skin exam: Present: warm, dry, intact, normal color. Absent: rash Course Vital Signs 05/31/23 12:51 Temperature 98.2 F Pulse Rate 90 Respiratory 18 Rate Blood Pressure 123/77 O2 Sat by Pulse 100 Oximetry Medical Decision Making - Medical Decision Making Was pt. sent in by a medical professional or institution (, PA, RADIOLOGY NURSE, urgent care, hospital, or halfway...) When possible be specific @ -No Did you speak to anyone other than the patient for history (EMS, parent, family, police, friend...)? What history was obtained from this source @ -No Did you review nursing and triage notes (agree or disagree)? Why? @ -I reviewed and agree with nursing and triage notes Were old charts reviewed (outside hosp., previous admission, EMS record, old EKG, old radiological studies, urgent care reports/EKG's, halfway records)? Report findings @ -No old charts were reviewed Differential Diagnosis (chest pain, altered mental status, abdominal pain women, abdominal pain men, vaginal bleeding, weakness, fever, dyspnea, syncope, headache, dizziness, GI bleed, back pain, seizure, CVA, palpatations, mental health, musculoskeletal)? @ -Chlamydia, gonorrhea, Trichomonas, herpes, hepatitis, HIV EKG interpreted by me (3pts min.). @ -Not done X-rays interpreted by me (1pt min.). @ -None done CT interpreted by me (1pt min.). @ -None done U/S interpreted by me (1pt. min.). @ -None done What testing was considered but not performed or refused? (CT, X-rays, U/S, labs)? Why? @ -None What meds were considered but not given or refused? Why? @ -Treatment for chlamydia and gonorrhea however patient refused that she wants to get the culture results first Did you discuss the management of the patient with other professionals (professionals i.e. , PA, RADIOLOGY NURSE, lab, RT, psych nurse, social welfare clerk, molded goods controls operator, teacher, chief data officer, bilingual case manager)? Give summary @ -No Was smoking cessation discussed for >3mins.? @ -No Was critical care preformed (if so, how long)? @ -No Were there social determinants of health that impacted care today? How? (Homelessness, low income, unemployed, alcoholism, drug addiction, transportation, low edu. Level, literacy, decrease access to med. care, detention, rehab)? @ -No Was there de-escalation of care discussed even if they declined (Discuss DNR or withdrawal of care, Hospice)? DNR status @ -No What co-morbidities impacted this encounter? (DM, HTN, Smoking, COPD, CAD, Cancer, CVA, ARF, Chemo, Hep., AIDS, mental health diagnosis, sleep apnea, morbid obesity)? @ -None Was patient admitted / discharged? Hospital course, mention meds given and route, prescriptions, significant lab abnormalities, going to OR and other pertinent info. @ -Upon arrival patient is placed into room 31. Thorough history and physical exam was performed. Pelvic exam was performed and cultures were obtained. Patient does provide a urine sample. Patient requesting to wait until the results are formal before taking any medications. She has no symptoms at this time. Trichomonas does return and I go to speak with the patient. Patient has eloped from the emergency room without her results Undiagnosed new problem with uncertain prognosis? @ -No Drug Therapy requiring intensive monitoring for toxicity (Heparin, Nitro, Insulin, Cardizem)? @ -No Were any procedures done? @ -Pelvic exam Diagnosis/symptom? @ -Acute STD exposure Acute, or Chronic, or Acute on Chronic? @ -Acute Uncomplicated (without systemic symptoms) or Complicated (systemic symptoms)? @ -Complicated Side effects of treatment? @ -No Exacerbation, Progression, or Severe Exacerbation? @ -No Poses a threat to life or bodily function? How? (Chest pain, [place], [place], pneumonia, PE, COPD, DKA, ARF, appy, cholecystitis, CVA, Diverticulitis, Homicidal, Suicidal, threat to staff... and all critical care pts) @ -No - Lab Data Lab Results 05/31/23 05/31/23 05/31/23 Range/Units 13:52 13:52 13:52 Urine Color Light Yellow Urine Appearance Clear (Clear) Urine pH 7.5 (5.0-8.0) Ur Specific [place] 1.010 (1.001-1.035) Urine Protein Negative (Negative) Urine Glucose (UA) Negative (Negative) Urine Ketones Negative (Negative) Urine Blood Negative (Negative) Urine Nitrite Negative (Negative) Urine Bilirubin Negative (Negative) Urine Urobilinogen <2.0 (<2.0) mg/dL Ur Leukocyte Esterase Negative (Negative) Urine HCG, Qual Not Detected (Not Detectd) Trichomonas Ag (Rapid) Negative (Negative) Disposition Clinical Impression: STD exposure Disposition: LEFT AGAINST MEDICAL ADVICE Condition: Stable Is patient prescribed a controlled substance at d/c from ED?: No Referrals: Juan Carlos Fallon MD [Primary Care Provider] - 1-2 days Time of Disposition: 14:55
== END 2023-05-31 15:00 | disposition left against medical advice (07) ==
LOC: EC 12:31
DX: Z20.2 Contact with and (suspected) exposure to infections with a predominantly sexual mode of transmission (principal); F12.90 Cannabis use, unspecified, uncomplicated; F17.290 Nicotine dependence, other tobacco product, uncomplicated; Z88.2 Allergy status to sulfonamides; Z86.59 Personal history of other mental and behavioral disorders; Z53.29 Procedure and treatment not carried out because of patient's decision for other reasons
CPT/HCPCS: 81003; 81025; 87070; 87491; 87591; 87808; 99283

== ENCOUNTER 2023-10-25 17:55 | Emergency (ER) | payer OTHER ==
[2023-10-25 18:14] VITALS: TEMP 97.3
[2023-10-25] MEDS ORDERED: MORPHINE SULFATE 4 MG/ML SYRINGE IVP STA (19:25)
[2023-10-25 19:51] LABS: Basophils % (A) 0 %; Eosinophils # (A) 0.1 k/uL (0-0.7); Eosinophils % (A) 3 %; HCT 39.8 % (34.0-46.0); HGB 13.6 gm/dL (11.4-16.0); Lymphocytes % (A) 47 %; MCH 32.2 pg (25.0-35.0); MCHC 34.1 g/dL (31.0-37.0); MCV 94.4 fL (80.0-100.0); Mean Platelet Volume 8.4; Monocytes # (A) 0.3 k/uL (0-1.0); Monocytes % (A) 7 %; Neutrophils # (A) 1.6 k/uL (1.3-7.7); Neutrophils % (A) 38 %; Platelet Count 202 k/uL (150-450); RBC 4.21 m/uL (3.80-5.40); RDW 13.1 % (11.5-15.5); WBC 4.2 k/uL (3.8-10.6)
[2023-10-25 20:09] LABS: ALT 11 U/L (4-34); AST 18 U/L (14-36); African American GFR (CKD) 85 (>60 ml/min/1.73 sqM); Albumin 4.2 g/dL (3.5-5.0); Alkaline Phosphatase 56 U/L (38-126); Anion Gap 8 mmol/L; Blood Urea Nitrogen 8 mg/dL (7-17); Calcium 8.8 mg/dL (8.4-10.2); Carbon Dioxide 24 mmol/L (22-30); Chloride 107 mmol/L (98-107); Glucose 90 mg/dL (74-99); Non-African American GFR(CKD) 74 (>60 ml/min/1.73 sqM); Potassium 3.8 mmol/L (3.5-5.1); Sodium 139 mmol/L (137-145); Total Bilirubin 0.7 mg/dL (0.2-1.3); Total Protein 6.8 g/dL (6.3-8.2)
[2023-10-25 20:16] LABS: C Reactive Protein <0.5 mg/dL (<1.0)
--- NOTE | 2023-10-25 21:10 | US ---
EXAMINATION TYPE: US extremity nonvasc mass RT DATE OF EXAM: 10/25/2023 COMPARISON: NONE CLINICAL INDICATION: Female, 33 years old with history of right distal thigh, r/o abscess; Pain right lower thigh near knee cap, edema, no distinct palpable at this time. Post testosterone injection yes terday TECHNIQUE AND FINDINGS: Scanned within patient's area of concern, right lower thigh near knee cap. No evidence of a discrete abnormality by ultrasound at this time. No soft tissue edema, focal fluid collection, or mass visuali zed. IMPRESSION: Unremarkable ultrasound of the area of concern in the right thigh.
[2023-10-25] MEDS ORDERED: ACET/COD 300 MG/30 MG STARTER PACK 6 TAB BTL PO STA (21:34)
--- NOTE | 2023-10-25 21:38 | ED ---
Extremity Problem HPI - General Chief complaint: Extremity Problem,Nontraumatic Stated complaint: knee pain/swelling Time Seen by Provider: 10/25/23 18:52 Source: patient Mode of arrival: ambulatory Limitations: no limitations - History of Present Illness Initial comments: 33-year-old female presents to the emergency department reporting to right knee pain. Patient takes testosterone injections once weekly. She has been doing this for a long time. Yesterday she administered her injection into her right proximal thigh. She had some soreness around the site which is common for her. States that today she woke up and she had significant pain at the distal aspect of her right thigh. Denies knee joint pain. She does have tenderness when flexing and extending. The proximal area to the knee is slightly warm and swollen. She did not take anything for the pain before coming into the emergency department. She denies any fevers. No drainage from the site. She has been ambulatory. No other alleviating, precipitating or modifying factors - Related Data Previous Rx's Medication Instructions Recorded Albuterol Sulfate [Proair Hfa] 1 - 2 puff INHALATION Q4HR PRN #1 10/24/18 inhaler Azithromycin [Zithromax Z-pack (6 0 mg PO DIRECTED #1 pack 10/24/18 tabs)] predniSONE 50 mg PO DAILY #5 tab 10/24/18 Acetaminophen-Codeine 300-30mg 1 tab PO Q6H PRN 3 Days #12 tablet 10/25/23 [Tylenol w/codeine #3] Allergies Allergy/AdvReac Type Severity Reaction Status Date / Time Sulfa (Sulfonamide Allergy Rash/Hives Verified 10/25/23 18:14 Antibiotics) Review of Systems ROS Statement: Those systems with pertinent positive or pertinent negative responses have been documented in the HPI. ROS Other: All systems not noted in ROS Statement are negative. Past Medical History Past Medical History: No Reported History Additional Past Medical History / Comment(s): Hepatitis C History of Any Multi-Drug Resistant Organisms: MRSA Date of last positivie culture/infection: 2010 MDRO Source:: axilla Past Surgical History: No Surgical Hx Reported Past Psychological History: Anxiety, Depression Smoking Status: Vaper Past Alcohol Use History: Rare Past Drug Use History: Marijuana - Past Family History Mother Family Medical History: Cancer General Exam Limitations: no limitations General appearance: alert, in no apparent distress Head exam: Present: atraumatic, normocephalic, normal inspection Eye exam: Present: normal appearance, PERRL, EOMI. Absent: scleral icterus, conjunctival injection, periorbital swelling ENT exam: Present: normal exam, mucous membranes moist Neck exam: Present: normal inspection. Absent: tenderness, meningismus, lymphadenopathy Respiratory exam: Present: normal lung sounds bilaterally. Absent: respiratory distress, wheezes, rales, rhonchi, stridor Cardiovascular Exam: Present: regular rate, normal rhythm, normal heart sounds. Absent: systolic murmur, diastolic murmur, rubs, gallop, clicks GI/Abdominal exam: Present: soft, normal bowel sounds. Absent: distended, tenderness, guarding, rebound, rigid Extremities exam: Present: full ROM, tenderness (Patient has tenderness to the vastus lateralis distally of the right thigh. This area is slightly eryt hematous and edematous. no overt fluctuance noted. No knee joint swelling. 2+ DP and PT pulses. No lymphatic streaking), normal capillary refill. Absent: pedal edema, joint swelling, calf tenderness Back exam: Present: normal inspection Neurological exam: Present: alert, oriented X3, CN II-XII intact Psychiatric exam: Present: normal affect, normal mood Skin exam: Present: warm, dry, intact, normal color. Absent: rash Course Vital Signs 10/25/23 10/25/23 18:11 21:49 Temperature 97.3 F L Pulse Rate 89 57 L Respiratory 17 20 Rate Blood Pressure 141/93 113/74 O2 Sat by Pulse 100 98 Oximetry Medical Decision Making - Medical Decision Making Was pt. sent in by a medical professional or institution (, PA, TIRE RETREADER, urgent care, hospital, or penitentiary...) When possible be specific @ -No Did you speak to anyone other than the patient for history (EMS, parent, family, police, friend...)? What history was obtained from this source @ -No Did you review nursing and triage notes (agree or disagree)? Why? @ -I reviewed and agree with nursing and triage notes Were old charts reviewed (outside hosp., previous admission, EMS record, old EKG, old radiological studies, urgent care reports/EKG's, penitentiary records)? Report findings @ -No old charts were reviewed Differential Diagnosis (chest pain, altered mental status, abdominal pain women, abdominal pain men, vaginal bleeding, weakness, fever, dyspnea, syncope, headache, dizziness, GI bleed, back pain, seizure, CVA, palpatations, mental h ealth, musculoskeletal)? @ -Abscess, cellulitis, injection reaction, septic joint EKG interpreted by me (3pts min.). @ -Not done X-rays interpreted by me (1pt min.). @ -None done CT interpreted by me (1pt min.). @ -None done U/S interpreted by me (1pt. min.). @ -Yes and does not demonstrate a fluid collection What testing was considered but not performed or refused? (CT, X-rays, U/S, labs)? Why? @ -None What meds were considered but not given or refused? Why? @ -None Did you discuss the management of the patient with other professionals (professionals i.e. , PA, TIRE RETREADER, lab, RT, psych nurse, social media job titles, seater assembler, teacher, chief supply chain officer, case assistant)? Give summary @ -No Was smoking cessation discussed for >3mins.? @ -No Was critical care preformed (if so, how long)? @ -No Were there social determinants of health that impacted care today? How? (Homelessness, low income, unemployed, alcoholism, drug addiction, transportation, low edu. Level, literacy, decrease access to med. care, fdc, rehab)? @ -No Was there de-escalation of care discussed even if they declined (Discuss DNR or withdrawal of care, Hospice)? DNR status @ -No What co-morbidities impacted this encounter? (DM, HTN, Smoking, COPD, CAD, Cancer, CVA, ARF, Chemo, Hep., AIDS, mental health diagnosis, sleep apnea, morbid obesity)? @ -None Was patient admitted / discharged? Hospital course, mention meds given and route, prescriptions, significant lab abnormalities, going to OR and other pertinent info. @ -Upon arrival patient was placed into room 29. Thorough history and physical exam is performed. Patient was administered pain medications. Laboratory studies are conducted. Ultrasound was performed which does not demonstrate a fluid collection. No signs of abscess. No fever and no elevated white blood cell count. These results are discussed with the patient. Suspected that the patient is having an injection reaction however patient needs to monitor closely to evaluate for increased swelling and redness as well as fever. Patient will be discharged home at this time with Tylenol threes for pain control. Recommend that she follow up with her doctor in 2-4 days. She is to place warm compresses to the site. Keep the leg elevated. Should her swelling or redness become worse, she needs to return to the emergency department for further evaluation of infection. Patient understood this and was agreeable. Discharged in stable condition Undiagnosed new problem with uncertain prognosis? @ -Yes Drug Therapy requiring intensive monitoring for toxicity (Heparin, Nitro, Insulin, Cardizem)? @ -No Were any procedures done? @ -No Diagnosis/symptom? @ -Acute right thigh pain, suspected injection reaction Acute, or Chronic, or Acute on Chronic? @ -Acute Uncomplicated (without systemic symptoms) or Complicated (systemic symptoms)? @ -Complicated Side effects of treatment? @ -No Exacerbation, Progression, or Severe Exacerbation? @ -No Poses a threat to life or bodily function? How? (Chest pain, [place], [place], pneumonia, PE, COPD, DKA, ARF, appy, cholecystitis, CVA, Diverticulitis, Homicidal, Suicidal, threat to staff... and all critical care pts) @ -No - Lab Data Result diagrams: 10/25/23 19:37 10/25/23 19:37 Lab Results 10/25/23 10/25/23 10/25/23 Range/Units 19:37 19:37 19:37 WBC 4.2 (3.8-10.6) k/uL RBC 4.21 (3.80-5.40) m/uL Hgb 13.6 (11.4-16.0) gm/dL Hct 39.8 (34.0-46.0) % MCV 94.4 (80.0-100.0) fL MCH 32.2 (25.0-35.0) pg MCHC 34.1 (31.0-37.0) g/dL RDW 13.1 (11.5-15.5) % Plt Count 202 (150-450) k/uL MPV 8.4 Neutrophils % 38 % Lymphocytes % 47 % Monocytes % 7 % Eosinophils % 3 % Basophils % 0 % Neutrophils # 1.6 (1.3-7.7) k/uL Lymphocytes # 2.0 (1.0-4.8) k/uL Monocytes # 0.3 (0-1.0) k/uL Eosinophils # 0.1 (0-0.7) k/uL Basophils # 0.0 (0-0.2) k/uL Sodium 139 (137-145) mmol/L Potassium 3.8 (3.5-5.1) mmol/L Chloride 107 (98-107) mmol/L Carbon Dioxide 24 (22-30) mmol/L Anion Gap 8 mmol/L BUN 8 (7-17) mg/dL Creatinine 1.02 (0.52-1.04) mg/dL Est GFR (CKD-EPI)AfAm 85 (>60 ml/min/1.73 sqM) Est GFR (CKD-EPI)NonAf 74 (>60 ml/min/1.73 sqM) Glucose 90 (74-99) mg/dL Plasma Lactic Acid Dov 0.7 (0.7-2.0) mmol/L Calcium 8.8 (8.4-10.2) mg/dL Total Bilirubin 0.7 (0.2-1.3) mg/dL AST 18 (14-36) U/L ALT 11 (4-34) U/L Alkaline Phosphatase 56 (38-126) U/L C-Reactive Protein <0.5 (<1.0) mg/dL Total Protein 6.8 (6.3-8.2) g/dL Albumin 4.2 (3.5-5.0) g/dL Disposition Clinical Impression: Right leg pain Disposition: HOME SELF-CARE Condition: Stable Instructions (If sedation given, give patient instructions): Leg Pain (ED) Additional Instructions: Place warm compresses to the site. Take the Tylenol threes alternating with Motrin 600 mg (3 over the counter tablets) every 4 hours. Follow-up with your doctor. If you develop a fever or have worsening pain or swelling, return to the emergency department Prescriptions: Acetaminophen-Codeine 300-30mg [Tylenol w/codeine #3] 1 tab PO Q6H PRN 3 Days #12 tablet PRN Reason: Pain Is patient prescribed a controlled substance at d/c from ED?: Yes When asked, does pt state using other controlled substances?: No If prescribed controlled substance>3 days was MAPS reviewed?: Prescribed <3 Days If opioid is for acute pain is fill amount 7 days or less?: Yes Referrals: Nonstaff,Physician [Primary Care Provider] - 1-2 days Time of Disposition: 21:36
[2023-10-25 21:58] VITALS: BP 113/74; PULSE 57; RESP 20
== END 2023-10-25 21:50 | disposition home or self-care (01) ==
LOC: EC 17:55
DX: M79.604 Pain in right leg (principal); F17.290 Nicotine dependence, other tobacco product, uncomplicated; F12.90 Cannabis use, unspecified, uncomplicated; Z88.2 Allergy status to sulfonamides; Z86.59 Personal history of other mental and behavioral disorders
CPT/HCPCS: 96374; 99284; 36415; 80053; 83605; 85025; 86140; 76882; J2270

== ENCOUNTER → 2023-11-06 | Outpatient (CLI) | payer OTHER | END | disposition home or self-care (01) | LOC: LABWHC1 13:27 | PROVIDERS: ATTEND Internal Medicine Gastroenterology | DX: Z53.9 Procedure and treatment not carried out, unspecified reason (principal) ==

== ENCOUNTER → 2023-11-07 | Outpatient (CLI) | payer OTHER ==
[2023-11-07 11:11] LABS: Basophils # (A) 0.07 X 10*3/uL (0.00-0.10); Basophils % (A) 1.7 %; Eosinophils # (A) 0.15 X 10*3/uL (0.04-0.35); Eosinophils % (A) 3.7 %; HCT 41.8 % (37.2-46.3); HGB 13.6 g/dL (12.0-15.0); Lymphocytes # (A) 1.32 X 10*3/uL (0.90-5.00); Lymphocytes % (A) 32.9 %; MCH 30.6 pg (27.0-32.0); MCHC 32.5 g/dL (32.0-37.0); MCV 94.1 FL (80.0-97.0); Mean Platelet Volume 10.8 FL (9.5-12.2); Monocytes # (A) 0.48 X 10*3/uL (0.20-1.00); NRBC Per 100 WBC 0 X 10*3/uL (0.00-0.01); Neutrophils # (A) 1.98 X 10*3/uL (1.80-7.70); Neutrophils % (A) 49.5 %; Platelet Count 248 X 10*3/uL (140-440); RBC 4.44 X 10*6/uL (4.10-5.20); RDW 12.8 % (11.5-14.5); WBC 4.01 X 10*3/uL (4.50-10.00)
[2023-11-07 11:25] LABS: ALT 8 U/L (8-44); AST 14 U/L (13-35); Albumin 4.2 g/dL (3.8-4.9); Albumin/Globulin Ratio 1.83 Ratio (1.60-3.17); Alkaline Phosphatase 65 U/L (41-126); Blood Urea Nitrogen 6.4 mg/dL (9.0-27.0); Carbon Dioxide 25.2 mmol/L (21.6-31.8); Chloride 108 mmol/L (96-109); Globulin 2.3 g/dL (1.6-3.3); Glucose 91 mg/dL (70-110); Potassium 4.4 mmol/L (3.5-5.5); Sodium 142 mmol/L (135-145); Total Bilirubin 0.3 mg/dL (0.3-1.2); Total Protein 6.5 g/dL (6.2-8.2)
== END | disposition home or self-care (01) ==
LOC: LABWHC1 06:53
PROVIDERS: ATTEND Nurse Practitioner Family
DX: B18.2 Chronic viral hepatitis C (principal)
CPT/HCPCS: 36415; 80053; 85025; 87522

== ENCOUNTER 2024-04-08 15:51 | Emergency (ER) | payer OTHER ==
--- NOTE | 2024-04-08 16:16 | ED ---
Upper Extremity HPI - General Source: patient, RN notes reviewed Mode of arrival: ambulatory Limitations: no limitations <Keerthi Corley - Last Filed: 04/08/24 16:15> - General Source: RN notes reviewed <Luiza Summers - Last Filed: 04/08/24 17:42> - General Chief Complaint: Extremity Injury, Upper Stated Complaint: [facility]-R hand injury Time Seen by Provider: 04/08/24 16:01 - History of Present Illness Initial Comments: Marquis noteis a 34-year-old female presents emergency department chief complaint of right forearm pain for the past day. 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 Denies falls or injury or previous surgeries to the arm. (Keerthi Corley) 34-year-old female with no significant past medical history presenting with right hand pain x 1 day. States yesterday she was at work when she was lifting a metal sheet and experienced pain in her right hand near her thumb. States over the past day the pain is now traveled up to her elbow and into her shoulder. Describes the pain as sharp. (Luiza Summers) - Related Data Previous Rx's Medication Instructions Recorded Albuterol Sulfate [Proair Hfa] 1 - 2 puff INHALATION Q4HR PRN #1 10/24/18 inhaler Azithromycin [Zithromax Z-pack (6 0 mg PO DIRECTED #1 pack 10/24/18 tabs)] predniSONE 50 mg PO DAILY #5 tab 10/24/18 Acetaminophen-Codeine 300-30mg 1 tab PO Q6H PRN 3 Days #12 tablet 10/25/23 [Tylenol w/codeine #3] Allergies Allergy/AdvReac Type Severity Reaction Status Date / Time Sulfa (Sulfonamide Allergy Rash/Hives Verified 10/25/23 18:14 Antibiotics) Review of Systems ROS Other: All systems not noted in ROS Statement are negative. <Keerthi Corley - Last Filed: 04/08/24 16:15> ROS Other: All systems not noted in ROS Statement are negative. <Luiza Summers - Last Filed: 04/08/24 17:42> ROS Statement: Those systems with pertinent positive or pertinent negative responses have been documented in the HPI. Past Medical History Past Medical History: No Reported History Additional Past Medical History / Comment(s): Hepatitis C History of Any Multi-Drug Resistant Organisms: MRSA Date of last positivie culture/infection: 2010 MDRO Source:: axilla Past Surgical History: No Surgical Hx Reported Past Psychological History: Anxiety, Depression Smoking Status: Vaper Past Alcohol Use History: Rare Past Drug Use History: Marijuana - Past Family History Mother Family Medical History: Cancer <Keerthi Corley - Last Filed: 04/08/24 16:15> General Exam Limitations: no limitations <Keerthi Corley - Last Filed: 04/08/24 16:15> General appearance: alert, in no apparent distress Head exam: Present: atraumatic, normocephalic, normal inspection Respiratory exam: Present: normal lung sounds bilaterally. Absent: respiratory distress, wheezes, rales, rhonchi, stridor Cardiovascular Exam: Present: regular rate, normal rhythm, normal heart sounds. Absent: systolic murmur, diastolic murmur, rubs, gallop, clicks Right Shoulder Exam: Present: normal inspection, full ROM. Absent: tenderness, swelling Upper Arm exam: Present: normal inspection, full ROM. Absent: tenderness, swelling Elbow exam: Present: normal inspection, full ROM. Absent: tenderness, swelling Forearm Wrist exam: Present: normal inspection, full ROM. Absent: tenderness, swelling Hand Wrist exam: Present: normal inspection, full ROM, tenderness (Diffuse tenderness over ventral and dorsal aspect of first digit of right hand. Full range of motion of all digits and wrist, full sensation, cap refill less than 2 seconds.). Absent: swelling, abrasion, deformity <Luiza Summers - Last Filed: 04/08/24 17:42> - General Exam Comments Initial Comments: Visual Physical Exam Vital signs reviewed General: Well-appearing, nontoxic, no acute distress. Head: Normocephalic, atraumatic Eyes: PERRLA, EOMI ENT: Airway patent Chest: Nonlabored breathing Skin: No visual rash, normal skin tone Neuro: Alert and oriented 3 Musculoskeletal: No gross abnormalities (Stieler,Keerthi) Course Vital Signs 04/08/24 16:00 Temperature 98.6 F Pulse Rate 78 Respiratory 18 Rate Blood Pressure 148/95 O2 Sat by Pulse 100 Oximetry Medical Decision Making <Keerthi Corley - Last Filed: 04/08/24 16:15> <Luiza Summers - Last Filed: 04/08/24 17:42> - Medical Decision Making I completed the quick note portion of this chart signed Keerthi Corley PA-C (Keerthi Corley) Was pt. sent in by a medical professional or institution (EDDI Hdez, GEOMETRY PROFESSOR, urgent care, hospital, or half-way...) When possible be specific @ -No Did you speak to anyone other than the patient for history (EMS, parent, family, police, friend...)? What history was obtained from this source @ -No Did you review nursing and triage notes (agree or disagree)? Why? @ -I reviewed and agree with nursing and triage notes Were old charts reviewed (outside hosp., previous admission, EMS record, old EKG, old radiological studies, urgent care reports/EKG's, half-way records)? Report findings @ -No old charts were reviewed Differential Diagnosis (chest pain, altered mental status, abdominal pain women, abdominal pain men, vaginal bleeding, weakness, fever, dyspnea, syncope, headache, dizziness, GI bleed, back pain, seizure, CVA, palpatations, mental health, musculoskeletal)? @ -Differential Musculoskeletal Muscular strain, contusion, ligament sprain, fracture, arthritis, septic arthritis, bursitis, cellulitis, muscle spasm, nerve compression, DVT, arterial occlusion, herpes zoster, electrolyte abnormality, tumor.... This is not meant to be in all inclusive list EKG interpreted by me (3pts min.). @ -None X-rays interpreted by me (1pt min.). @ -X-ray of right hand, forearm, wrist reveal no acute fracture or dislocation CT interpreted by me (1pt min.). @ -None done U/S interpreted by me (1pt. min.). @ -None done What testing was considered but not performed or refused? (CT, X-rays, U/S, labs)? Why? @ -None What meds were considered but not given or refused? Why? @ -Toradol not given due to patient took ibuprofen 2 hours prior to arrival Did you discuss the management of the patient with other professionals (professionals i.e. EDDI Hdez, GEOMETRY PROFESSOR, lab, RT, psych nurse, social service agency director, africana studies professor, teacher, medical officer, welfare case worker)? Give summary @ -No Was smoking cessation discussed for >3mins.? @ -No Was critical care preformed (if so, how long)? @ -No Were there social determinants of health that impacted care today? How? (Homelessness, low income, unemployed, alcoholism, drug addiction, transportation, low edu. Level, literacy, decrease access to med. care, correction, rehab)? @ -No Was there de-escalation of care discussed even if they declined (Discuss DNR or withdrawal of care, Hospice)? DNR status @ -No What co-morbidities impacted this encounter? (DM, HTN, Smoking, COPD, CAD, Cancer, CVA, ARF, Chemo, Hep., AIDS, mental health diagnosis, sleep apnea, morbid obesity)? @ -None Was patient admitted / discharged? Hospital course, mention meds given and route, prescriptions, significant lab abnormalities, going to OR and other pertinent info. @ -Patient was discharged. Patient was seen and evaluated for right hand pain x 1 day. Neurovascularly intact. No sign of bacterial infection. X-rays revealed no acute process. Awais wrap applied. Diagnosis of right hand strain discussed with patient and supportive care discussed. Return/alarm symptoms discussed with patient and patient shows understanding and agrees. Discharged in stable condition. Case discussed with Dr. Crocker. Undiagnosed new problem with uncertain prognosis? @ -No Drug Therapy requiring intensive monitoring for toxicity (Heparin, Nitro, Insulin, Cardizem)? @ -No Were any procedures done? @ -No Diagnosis/symptom? @ -Right hand strain Acute, or Chronic, or Acute on Chronic? @ -Acute Uncomplicated (without systemic symptoms) or Complicated (systemic symptoms)? @ -Uncomplicated Side effects of treatment? @ -No Exacerbation, Progression, or Severe Exacerbation? @ -No Poses a threat to life or bodily function? How? (Chest pain, [place], [place], pneumonia, PE, COPD, DKA, ARF, appy, cholecystitis, CVA, Diverticulitis, Homicidal, Suicidal, threat to staff... and all critical care pts) @ -No (Luiza Summers) Disposition <Keerthi Corley - Last Filed: 04/08/24 16:15> Is patient prescribed a controlled substance at d/c from ED?: No Time of Disposition: 17:38 <Luiza Summers - Last Filed: 04/08/24 17:42> Clinical Impression: Strain of right hand Disposition: HOME SELF-CARE Condition: Stable Instructions (If sedation given, give patient instructions): Hand Sprain (ED) Additional Instructions: Please return to the Emergency Department if symptoms worsen or any other concerns. Referrals: Angelika Odell MD [Primary Care Provider] - 1-2 days
--- NOTE | 2024-04-08 17:07 | XR ---
EXAMINATION TYPE: XR wrist complete RT, XR hand complete RT, XR forearm RT DATE OF EXAM: 04/08/2024 4:43 PM CLINICAL INDICATION:Female, 34 years old with history of pain; [facility] COMPARISON: None TECHNIQUE: XR wrist complete RT, XR hand complete RT, XR forearm RT; examined in the Frontal, navicu lar, lateral, and oblique. Frontal and lateral views of the forearm. Additional navicular view of the wrist. FINDINGS: No acute osseous pathology, joint dislocation, or joint effusion. No evidence of any soft tissue swelling is seen. IMPRESSION: No acute osseous pathology.
[2024-04-08 17:23] VITALS: PULSE 78; RESP 18
[2024-04-08 18:02] VITALS: BP 137/81; TEMP 98.1
== END 2024-04-08 17:59 | disposition home or self-care (01) ==
LOC: EC 15:51
DX: S66.911A Strain of unspecified muscle, fascia and tendon at wrist and hand level, right hand, initial encounter (principal); F17.290 Nicotine dependence, other tobacco product, uncomplicated; Z88.2 Allergy status to sulfonamides; X50.0XXA Overexertion from strenuous movement or load, initial encounter; Y99.0 Civilian activity done for income or pay
CPT/HCPCS: 99283

== ENCOUNTER 2024-09-02 19:49 | Emergency (ER) | payer OTHER ==
[2024-09-02 19:54] VITALS: RESP 18; TEMP 97.9
--- NOTE | 2024-09-02 20:04 | ED ---
Abdominal Pain HPI - General Source: patient Mode of arrival: ambulatory Limitations: no limitations <Enio Alexis - Last Filed: 09/02/24 20:04> <Lise Pepper - Last Filed: 09/10/24 09:51> - General Chief Complaint: Abdominal Pain Stated Complaint: dehydration Time Seen by Provider: 09/02/24 20:04 - History of Present Illness Initial Comments: 34-year-old female presenting with chief complaint of diffuse abdominal discomfort. States that she cannot pass gas but is able to have bowel movements. No nausea or vomiting. (Enio Alexis) Patient is a 34-year-old female, transition to male, pronouns he him goes by Will presenting today for crampy lower abdominal pain x 2 days and feeling dehydrated. Pain comes and goes. Feels like pain got worse after eating potatoes and pork only last night. No episodes of emesis, diarrhea, black or bloody stools. Has a soft bowel movement daily. No fevers. Endorses feeling lightheaded and dizzy yesterday which is why he felt like he was dehydrated. States he does not drink enough water because he does not like the taste. Denies dysuria, hematuria, vaginal bleeding or discharge. Is currently on testosterone supplementation (Lise Pepper) - Related Data Previous Rx's Medication Instructions Recorded Albuterol Sulfate [Proair Hfa] 1 - 2 puff INHALATION Q4HR PRN #1 10/24/18 inhaler Azithromycin [Zithromax Z-pack (6 0 mg PO DIRECTED #1 pack 10/24/18 tabs)] predniSONE 50 mg PO DAILY #5 tab 10/24/18 Acetaminophen-Codeine 300-30mg 1 tab PO Q6H PRN 3 Days #12 tablet 10/25/23 [Tylenol w/codeine #3] Allergies Allergy/AdvReac Type Severity Reaction Status Date / Time Sulfa (Sulfonamide Allergy Rash/Hives Verified 09/02/24 19:54 Antibiotics) Review of Systems ROS Other: All systems not noted in ROS Statement are negative. <Enio Alexis - Last Filed: 09/02/24 20:04> ROS Other: All systems not noted in ROS Statement are negative. <Lise Pepper - Last Filed: 09/10/24 09:51> ROS Statement: Those systems with pertinent positive or pertinent negative responses have been documented in the HPI. Past Medical History Past Medical History: No Reported History Additional Past Medical History / Comment(s): Hepatitis C History of Any Multi-Drug Resistant Organisms: MRSA Date of last positivie culture/infection: 2010 MDRO Source:: axilla Past Surgical History: No Surgical Hx Reported Past Psychological History: Anxiety, Depression Smoking Status: Vaper Past Alcohol Use History: Rare Past Drug Use History: Marijuana - Past Family History Mother Family Medical History: Cancer <Enio Alexis - Last Filed: 09/02/24 20:04> General Exam Limitations: no limitations <Enio Alexis - Last Filed: 09/02/24 20:04> <Lise Pepper - Last Filed: 09/10/24 09:51> - General Exam Comments Initial Comments: Visual Physical Exam Vital signs reviewed General: Well-appearing, nontoxic, no acute distress. Head: Normocephalic, atraumatic Eyes: PERRLA, EOMI ENT: Airway patent Chest: Nonlabored breathing Skin: No visual rash, normal skin tone Neuro: Alert and oriented 3 Musculoskeletal: No gross abnormalities (Enio Alexis) PE: CONSTITUTIONAL: No apparent distress, well appearing SKIN: Warm, dry, no jaundice, hives or petechiae EYES: Pupils are equally round, extraocular movements intact without nystagmus, clear conjunctiva, non-icteric sclera HENT: Normocephalic, atraumatic, dry mucus membranes, oropharynx clear without exudates NECK: , Full range of motion, normal appearance PULMONARY: Clear to auscultation without wheezes, rhonchi, or rales, normal excursion, no accessory muscle use and no stridor CARDIOVASCULAR: Regular rate, rhythm, normal S1 and S2. No appreciated murmurs, rubs or gallops. Strong radial pulses with intact distal perfusion. No lower extremity edema GASTROINTESTINAL: Soft, active bowel sounds throughout, non-tender, non- distended, no palpable masses, no rebound or guarding. No hepatosplenomegaly MUSCULOSKELETAL: Extremities have no gross deformity, no edema, redness, or swelling. No calf swelling NEUROLOGIC:_a/o x 3, GCS 15, normal mentation and speech. Moves all extremities x 4 without motor or sensory deficit PSYCHIATRIC:_normal mood and affect, thought process is clear and linear (Lise Pepper) Course Vital Signs 09/02/24 09/02/24 19:50 23:24 Temperature 97.9 F Pulse Rate 87 60 Respiratory 18 18 Rate Blood Pressure 139/93 128/90 O2 Sat by Pulse 100 100 Oximetry Medical Decision Making <Enio Alexis - Last Filed: 09/02/24 20:04> - Lab Data Result diagrams: 09/02/24 20:38 09/02/24 20:38 <Lise Pepper - Last Filed: 09/10/24 09:51> - Medical Decision Making I performed the quick note portion of this visit, electronically signed Enio Alexis PA-C (Enio Alexis) Was pt. sent in by a medical professional or institution ([facility], EXTENSION WORKER, urgent care, hospital, or [facility]...) When possible be specific @ -No Did you speak to anyone other than the patient for history (EMS, parent, family, police, friend...)? What history was obtained from this source @ -No Did you review nursing and triage notes (agree or disagree)? Why? @ -I reviewed and agree with nursing and triage notes Were old charts reviewed (outside hosp., previous admission, EMS record, old EKG, old radiological studies, urgent care reports/EKG's, [facility] records)? Report findings @Old charts were reviewed- Reviewed liver ultrasound report from 05/16/2023 with no out significant abnormality appreciated Differential Diagnosis (chest pain, altered mental status, abdominal pain women, abdominal pain men, vaginal bleeding, weakness, fever, dyspnea, syncope, headache, dizziness, GI bleed, back pain, seizure, CVA, palpatations, mental health, musculoskeletal)? @ -Diagnosis remains broad over top considerations include constipation, acute cystitis, urinary tract infection, small bowel obstruction, GERD, IBS, IBD, ureterolithiasis this is not all inclusive list EKG interpreted by me (3pts min.). @ -As above X-rays interpreted by me (1pt min.). @ -Nonobstructive bowel gas pattern, no free air under the diaphragm CT interpreted by me (1pt min.). @ -None done U/S interpreted by me (1pt. min.). @ -None done What testing was considered but not performed or refused? (CT, X-rays, U/S, labs)? Why? @I did consider obtaining a CT abdomen pelvis with contrast however patient's abdominal exam is reassuring, abdomen soft and nontender, patient tolerating p.o. and labs reassuring What meds were considered but not given or refused? Why? @ -None Did you discuss the management of the patient with other professionals (professionals i.e. Dr., PA, EXTENSION WORKER, lab, RT, psych nurse, geriatric social work professor, weight tester, teacher, environmental health officer, case packer)? Give summary @ -No Was smoking cessation discussed for >3mins.? @ -No Was critical care preformed (if so, how long)? @ -No Were there social determinants of health that impacted care today? How? (Homelessness, low income, unemployed, alcoholism, drug addiction, tra nsportation, low edu. Level, literacy, decrease access to med. care, [place] [facility], rehab)? @ -No Was there de-escalation of care discussed even if they declined (Discuss DNR or withdrawal of care, Hospice)? @ -No What co-morbidities impacted this encounter? (DM, HTN, Smoking, COPD, CAD, Cancer, CVA, ARF, Chemo, Hep., AIDS, mental health diagnosis, sleep apnea, morbid obesity)? @ -None Was patient admitted / discharged? Hospital course, mention meds given and route, prescriptions, significant lab abnormalities, going to OR and other pertinent info. @ -Hospital course discharged Patient is a pleasant 34-year-old female identifies as male, goes by Will here for 2 days lower abdominal pain and concern for dehydration. No N/V/D, able to tolerate PO intake. On assessment well appearing, pleasant, in NAD. Mucous membranes are dry. Abdomen is soft, nontender and nondistened, with active bowel sounds, no guarding. KUB XR ordered as part of triage protocol prior to my assessment showed nonobstruct bowel gas pattern. Labs reviewed, slightly to with white blood count 3.7, otherwise hemoconcentrated hemoglobin 16.6, creatinine elevated at 1.17, prior was 1.0 I suspect this is secondary to volume depletion, GFR is within normal limits. Updated patient to these findings. Discussed with patient plan for IV fluids, GI cocktail, pendng UA. He is agreeable with POC. Additionally we discussed the importance of remaining hydrated if discharged and discussed strategies and options to help him stay hyd rated throughout the day. UA positive for LE, neg nitrites, rare bacteria. Patient without symptoms of UTI, no dysuria or frequency. Unnecessary to treat asymptomatic bacteruiria. Patient requesting discharge, states he feels improved and ready for discharge. We discussed signs and symptoms warranting return to the ED. All questions answered, patient dc'd in good condition. In my medical judgment there is currently no evidence of an immediate life- threatening or surgical condition. Discharge is therefore indicated at this time. Discharge treatment instructions, follow up instructions, and appropriate emergency department return precautions were discussed with the patient and/or medical decision maker. Patient and/or medical decision maker expressed understanding of and agreed with the treatment plan, follow up instructions, and emergency department return precaution. All patient's and/or medical decision maker's questions were answered. Undiagnosed new problem with uncertain prognosis? @ -No Drug Therapy requiring intensive monitoring for toxicity (Heparin, Nitro, Insuli n, Cardizem)? @ -No Were any procedures done? @ -No Diagnosis/symptom? @ -Dehydration, abdominal pain Acute, or Chronic, or Acute on Chronic? @Acute Uncomplicated (without systemic symptoms) or Complicated (systemic symptoms)? @ -Complicated Side effects of treatment? @ -No Exacerbation, Progression, or Severe Exacerbation? @ -No Poses a threat to life or bodily function? How? (Chest pain, USA, MS, pneumonia, PE, COPD, DKA, ARF, appy, cholecystitis, CVA, Diverticulitis, Homicidal, Suicidal, threat to staff... and all critical care pts) @ -No (Lise Pepper) - Lab Data Lab Results 09/02/24 09/02/24 09/02/24 Range/Units 20:38 20:38 20:38 WBC 3.7 L (3.8-10.6) k/uL RBC 5.41 H (3.80-5.40) m/uL Hgb 16.6 H (11.4-16.0) gm/dL Hct 51.9 H (34.0-46.0) % MCV 95.9 (80.0-100.0) fL MCH 30.7 (25.0-35.0) pg MCHC 32.0 (31.0-37.0) g/dL RDW 13.0 (11.5-15.5) % Plt Count 245 (150-450) k/uL MPV 7.6 Neutrophils % 49 % Lymphocytes % 41 % Monocytes % 4 % Eosinophils % 3 % Basophils % 1 % Neutrophils # 1.8 (1.3-7.7) k/uL Lymphocytes # 1.5 (1.0-4.8) k/uL Monocytes # 0.2 (0-1.0) k/uL Eosinophils # 0.1 (0-0.7) k/uL Basophils # 0.0 (0-0.2) k/uL Sodium 139 (137-145) mmol/L Potassium 3.9 (3.5-5.1) mmol/L Chloride 105 (98-107) mmol/L Carbon Dioxide 25 (22-30) mmol/L Anion Gap 9 mmol/L BUN 7 (7-17) mg/dL Creatinine 1.17 H (0.52-1.04) mg/dL Est GFR (CKD-EPI)AfAm 71 (>60 ml/min/1.73 sqM) Est GFR (CKD-EPI)NonAf 62 (>60 ml/min/1.73 sqM) Glucose 81 (74-99) mg/dL Plasma Lactic Acid Dov 1.1 (0.7-2.0) mmol/L Calcium 9.6 (8.4-10.2) mg/dL Total Bilirubin 0.9 (0.2-1.3) mg/dL AST 22 (14-36) U/L ALT 12 (4-34) U/L Alkaline Phosphatase 47 (38-126) U/L Total Protein 7.2 (6.3-8.2) g/dL Albumin 4.5 (3.5-5.0) g/dL Amylase 60 (30-110) U/L Lipase 82 (23-300) U/L HCG, Qual Urine Color Urine Appearance (Clear) Urine pH (5.0-8.0) Ur Specific [place] (1.001-1.035) Urine Protein (Negative) Urine Glucose (UA) (Negative) Urine Ketones (Negative) Urine Blood (Negative) Urine Nitrite (Negative) Urine Bilirubin (Negative) Urine Urobilinogen (<2.0) mg/dL Ur Leukocyte Esterase (Negative) Urine RBC (0-5) /hpf Urine WBC (0-5) /hpf Ur Squamous Epith Cells (0-4) /hpf Urine Bacteria (None) /hpf Urine Mucus (None) /hpf 09/02/24 09/02/24 Range/Units 21:46 23:55 WBC (3.8-10.6) k/uL RBC (3.80-5.40) m/uL Hgb (11.4-16.0) gm/dL Hct (34.0-46.0) % MCV (80.0-100.0) fL MCH (25.0-35.0) pg MCHC (31.0-37.0) g/dL RDW (11.5-15.5) % Plt Count (150-450) k/uL MPV Neutrophils % % Lymphocytes % % Monocytes % % Eosinophils % % Basophils % % Neutrophils # (1.3-7.7) k/uL Lymphocytes # (1.0-4.8) k/uL Monocytes # (0-1.0) k/uL Eosinophils # (0-0.7) k/uL Basophils # (0-0.2) k/uL Sodium (137-145) mmol/L Potassium (3.5-5.1) mmol/L Chloride (98-107) mmol/L Carbon Dioxide (22-30) mmol/L Anion Gap mmol/L BUN (7-17) mg/dL Creatinine (0.52-1.04) mg/dL Est GFR (CKD-EPI)AfAm (>60 ml/min/1.73 sqM) Est GFR (CKD-EPI)NonAf (>60 ml/min/1.73 sqM) Glucose (74-99) mg/dL Plasma Lactic Acid Dov (0.7-2.0) mmol/L Calcium (8.4-10.2) mg/dL Total Bilirubin (0.2-1.3) mg/dL AST (14-36) U/L ALT (4-34) U/L Alkaline Phosphatase (38-126) U/L Total Protein (6.3-8.2) g/dL Albumin (3.5-5.0) g/dL Amylase (30-110) U/L Lipase (23-300) U/L HCG, Qual Not Detected Urine Color Colorless Urine Appearance Clear (Clear) Urine pH 6.0 (5.0-8.0) Ur Specific [place] 1.009 (1.001-1.035) Urine Protein Negative (Negative) Urine Glucose (UA) Negative (Negative) Urine Ketones 1+ H (Negative) Urine Blood Negative (Negative) Urine Nitrite Negative (Negative) Urine Bilirubin Negative (Negative) Urine Urobilinogen <2.0 (<2.0) mg/dL Ur Leukocyte Esterase Large H (Negative) Urine RBC 2 (0-5) /hpf Urine WBC 7 H (0-5) /hpf Ur Squamous Epith Cells 1 (0-4) /hpf Urine Bacteria Rare H (None) /hpf Urine Mucus Many H (None) /hpf Disposition <Enio Alexis - Last Filed: 09/02/24 20:04> Is patient prescribed a controlled substance at d/c from ED?: No <Lise Pepper - Last Filed: 09/10/24 09:51> Clinical Impression: Abdominal pain, Dehydration, GARFIELD (acute kidney injury) Disposition: HOME SELF-CARE Condition: Good Instructions (If sedation given, give patient instructions): Dehydration (ED) Additional Instructions: Every disease is a spectrum and a small chance still exists that a serious condition could develop, for this reason, please monitor yourself closely for new, changing or worsening symptoms, symptoms that persist beyond 48 hours, blood in your vomit or bright green color in your vomit, bloody stools, lightheadedness or dizziness, feeling like you are going to pass out or episodes of passing out, decreased urine output fever, inability to tolerate/keep down fluids or your medications, inability to follow up with outpatient providers as instructed and should you experience these symptoms or should you have any further concerns for your wellbeing please return to the ED or call 911 immediately. Please follow with your primary care provider to have your kidney function rechecked to ensure improvement. PLEASE call your primary care physician as soon as possible to arrange / discuss plan for followup appointment. Appointment in the next 1-3 days is strongly encouraged if possible. PLEASE let us know here before you leave if there is anything further we can do to be of any assistance. Take care and feel Better! Referrals: Nonstaff,Physician [Primary Care Provider] - 1-2 days
--- NOTE | 2024-09-02 20:17 | XR ---
EXAMINATION TYPE: XR KUB DATE OF EXAM: 09/02/2024 8:13 PM CLINICAL INDICATION: Female, 34 years old with history of abdominal pain; [facility] COMPARISON: None. TECHNIQUE: One radiographic view of the abdomen was obtained. FINDINGS: The bowel gas pattern is nonspecific without dilated loops of small or large bowel. . Fecal material and gas are demonstrated throughout the colon and rectum. There is no evidence for organomegaly or pneumoperitoneum. The osseous structures are intact. No ab normal calcifications are present. IMPRESSION: Nonspecific bowel gas pattern without radiographic evidence for acute process. [facility], , 09/02/2024 8:14 PM
[2024-09-02 20:51] LABS: Basophils % (A) 1 %; Eosinophils # (A) 0.1 k/uL (0-0.7); Eosinophils % (A) 3 %; HCT 51.9 % (34.0-46.0); HGB 16.6 gm/dL (11.4-16.0); Lymphocytes # (A) 1.5 k/uL (1.0-4.8); Lymphocytes % (A) 41 %; MCH 30.7 pg (25.0-35.0); MCV 95.9 fL (80.0-100.0); Mean Platelet Volume 7.6; Monocytes # (A) 0.2 k/uL (0-1.0); Monocytes % (A) 4 %; Neutrophils # (A) 1.8 k/uL (1.3-7.7); Neutrophils % (A) 49 %; Platelet Count 245 k/uL (150-450); RBC 5.41 m/uL (3.80-5.40); WBC 3.7 k/uL (3.8-10.6)
[2024-09-02 21:08] LABS: ALT 12 U/L (4-34); AST 22 U/L (14-36); African American GFR (CKD) 71 (>60 ml/min/1.73 sqM); Albumin 4.5 g/dL (3.5-5.0); Alkaline Phosphatase 47 U/L (38-126); Amylase 60 U/L (30-110); Anion Gap 9 mmol/L; Blood Urea Nitrogen 7 mg/dL (7-17); Calcium 9.6 mg/dL (8.4-10.2); Carbon Dioxide 25 mmol/L (22-30); Chloride 105 mmol/L (98-107); Glucose 81 mg/dL (74-99); Lipase 82 U/L (23-300); Non-African American GFR(CKD) 62 (>60 ml/min/1.73 sqM); Potassium 3.9 mmol/L (3.5-5.1); Sodium 139 mmol/L (137-145); Total Bilirubin 0.9 mg/dL (0.2-1.3); Total Protein 7.2 g/dL (6.3-8.2)
[2024-09-02] MEDS: MAG HYDROX/AL HYDROX/SIMETH 30 ML, HYOSCYAMINE ELIXIR 10 ML, LIDOCAINE VISCOUS 2% 10 ML PO STA (22:17)
[2024-09-02] MEDS: SODIUM CHLORIDE 0.9% 2,000 ML IV ONE (22:20)
[2024-09-02 23:24] VITALS: BP 128/90; PULSE 60
[2024-09-03 00:34] LABS: Appearance,Urine Clear (Clear); Bacteria,Urine Rare /hpf; Bilirubin,Urine Negative (Negative); Blood,Urine Negative (Negative); Color,Urine Colorless; Glucose,Urine (UA) Negative (Negative); Ketones,Urine 1+ (Negative); Leukocyte Esterase,Urine Large (Negative); Mucus,Urine Many /hpf; Nitrite,Urine Negative (Negative); Protein,Urine Negative (Negative); RBC,Urine 2 /hpf (0-5); Specific Gravity,Urine 1.009 (1.001-1.035); Squamous Epithelial Cell,Urine 1 /hpf (0-4); Urobilinogen,Urine <2.0 mg/dL (<2.0); WBC,Urine 7 /hpf (0-5)
== END 2024-09-03 02:46 | disposition home or self-care (01) ==
LOC: EC 19:49
CPT/HCPCS: 36415; 74018; 80053; 81001; 82150; 83605; 83690; 84703; 85025; 96360; 96361; 99284